=== PATIENT | female | born 1990 | race Caucasian/White ===

== ENCOUNTER 2018-11-13 16:40 | Inpatient (IN) | payer OTHER ==
[2018-11-13] MEDS ORDERED: FAMOTIDINE 20 MG/50 ML IVPB 20 MG/50 ML MG IVPB ONE ×2 (17:06→17:18)
[2018-11-13] MEDS ORDERED: morphine CARPU-JECT 4 MG/1 ML DISP.SYRIN IVPUSH ONE ×3 (17:06→22:36)
--- NOTE | 2018-11-13 17:12 | PDOC ---
History of Present Illness - General Chief Complaint: Chest Pain Stated Complaint: CHEST PAIN Time Seen by Provider: 11/13/18 16:52 History Source: Patient, Spouse Exam Limitations: Language Barrier - History of Present Illness Initial Comments: 11/13/18 17:09 28yo F with no significant PMH presenting to ED with complaints of chest pain radiating to the back since this AM. Pt had pain upon waking up and has progressively worsened per for the last hour. She states the pain is 10/ 10 and radiates to the back. States that she does not feel short of breath but feels the pain upon inspiration and with movements. She denies injury, cough, fevers, chills, abdominal pain, n/v/d, smoking, leg swelling, recent travel, recent surgeries. LMP 10/25/2018. 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 PMD: none PMH: none PSH: Meds: none Allergies: nkda Social: denies Past History - Past Medical History Allergies/Adverse Reactions: Allergies Allergy/AdvReac Type Severity Reaction Status Date / Time No Known Allergies Allergy Verified 11/13/18 16:48 Home Medications: Ambulatory Orders NK [No Known Home Medication] 11/13/18 COPD: No - Psycho Social/Smoking Cessation Hx Smoking History: Never smoked Review of Systems - Review of Systems Able to Perform ROS?: Yes Constitutional: No: Chills, Fever, Weakness HEENTM: No: Symptoms Reported Respiratory: Yes: Shortness of Breath Cardiac (ROS): Yes: Chest Pain. No: Edema, Lightheadedness, Palpitations ABD/GI: No: Constipated, Diarrhea, Nausea, Rectal Bleeding, Vomiting, Abdominal cramping, Tarry Stools : No: Symptoms Reported Musculoskeletal: Yes: Back Pain Integumentary: No: Symptoms Reported Neurological: No: Symptoms reported *Physical Exam - Vital Signs Last Vital Signs Temp Pulse Resp BP Pulse Ox 98.5 F 89 19 136/68 100 11/13/18 22:10 11/13/18 22:10 11/13/18 22:10 11/13/18 22:10 11/13/18 22:10 - Physical Exam General Appearance: Yes: Nourished, Appropriately Dressed, Severe Distress HEENT: positive: EOMI, MARGARETH, Pale Conjunctivae Neck: positive: Trachea midline, Supple Respiratory/Chest: positive: Chest Tender, Lungs Clear, Normal Breath Sounds. negative: Accessory Muscle Use, Crackles, Rales, Rhonchi, Stridor, Wheezing Cardiovascular: positive: Regular Rhythm, Regular Rate, S1, S2. negative: Edema , JVD, Murmur Vascular Pulses: Dorsalis-Pedis (R): 2+, Doralis-Pedis (L): 2+ Gastrointestinal/Abdominal: positive: Normal Bowel Sounds, Soft, Tenderness ( RUQ and epigastric) Musculoskeletal: negative: CVA Tenderness Extremity: positive: Pelvis Stable. negative: Swelling, Calf Tenderness, Erythema Integumentary: positive: Dry, Warm, Pale Neurologic: positive: ethanol operator II-XII NML intact, Fully Oriented, Alert, Normal Mood/ Affect, Normal Response, Motor Strength 06/14 ED Treatment Course - LABORATORY CBC & Chemistry Diagram: 11/13/18 17:25 11/13/18 17:25 - ADDITIONAL ORDERS Additional order review: Laboratory Results 11/13/18 11/13/18 11/13/18 20:10 19:37 17:25 PT with INR INR PTT (Actin FS) Sodium Potassium Chloride Carbon Dioxide Anion Gap BUN Creatinine Est GFR (CKD-EPI)AfAm Est GFR (CKD-EPI)NonAf Random Glucose Calcium Total Bilirubin AST ALT Alkaline Phosphatase Troponin I Total Protein Albumin Lipase Beta HCG, Quant Serum , Qual Negative Stool Occult Blood Negative Blood Type B POSITIVE Antibody Screen Negative 11/13/18 11/13/18 11/13/18 17:25 17:25 17:25 PT with INR Cancelled 13.50 H INR Cancelled 1.14 H PTT (Actin FS) 26.1 Sodium 137 Potassium 3.5 Chloride 104 Carbon Dioxide 26 Anion Gap 8 BUN 18.2 H Creatinine 0.7 Est GFR (CKD-EPI)AfAm 135.70 Est GFR (CKD-EPI)NonAf 117.08 Random Glucose 142 H Calcium 8.7 Total Bilirubin 0.6 AST 67 H ALT 40 Alkaline Phosphatase 115 Troponin I < 0.02 Total Protein 7.4 Albumin 3.8 Lipase 121 Beta HCG, Quant < 1.0 Serum , Qual Stool Occult Blood Blood Type Antibody Screen 11/13/18 17:25 RBC 4.60 MCV 54.2 L MCHC 28.7 L RDW 20.2 H MPV 8.9 Neutrophils % 80.1 Lymphocytes % 14.5 Monocytes % 3.1 L Eosinophils % 1.8 Basophils % 0.5 - RADIOLOGY Radiology Studies Ordered: Category Date Time Status CHEST X-RAY PORTABLE* [RAD] Stat Radiology 11/13/18 17:06 Taken ABDOMEN US -LIMITED [US] Stat Ultrasound 11/13/18 18:06 Completed - Medications Given in the ED: ED Medications Discontinued Medications Generic Name Dose Route Start Last Admin Trade Name Demianq PRN Reason Stop Dose Admin Acetaminophen 1,000 mg 11/13/18 18:20 11/13/18 18:22 Ofirmev Injection - IVPB 11/13/18 18:21 1,000 mg ONCE ONE Administration Famotidine/Sodium Chloride 20 mg in 50 mls @ 100 mls/hr 11/13/18 17:06 17:20 Pepcid 20 Mg Premixed Ivpb - IVPB 11/13/18 17:35 100 mls/hr ONCE ONE Administration Sodium Chloride 1,000 mls @ 1,000 mls/hr 11/13/18 18:08 11/13/18 18:16 Normal Saline - IV 11/13/18 19:07 1,000 mls/hr ASDIR STA Administration Sodium Chloride 1,000 mls @ 1,000 mls/hr 11/13/18 22:00 11/13/18 22:52 Normal Saline - IV 11/13/18 22:59 1,000 mls/hr ASDIR STA Administration Ceftriaxone Sodium 1 gm/ 100 mls @ 200 mls/hr 11/13/18 22:55 11/13/18 23:05 Dextrose IVPB 11/13/18 23:24 200 mls/hr ONCE ONE Administration Ketamine HCl 19 mg 11/13/18 18:07 11/13/18 20:17 Ketalar - IVPUSH 11/13/18 18:08 Not Given ONCE ONE Morphine Sulfate 2 mg 11/13/18 17:06 11/13/18 17:19 Morphine Injection - IVPUSH 11/13/18 17:07 2 mg ONCE ONE Administration Morphine Sulfate 2 mg 11/13/18 20:16 11/13/18 20:25 Morphine Injection - IVPUSH 11/13/18 20:17 2 mg ONCE ONE Administration Morphine Sulfate 4 mg 11/13/18 22:36 11/13/18 22:52 Morphine Injection - IVPUSH 11/13/18 22:37 4 mg ONCE ONE Administration Ondansetron HCl 4 mg 11/13/18 17:31 11/13/18 17:46 Zofran Injection IVPB 11/13/18 17:32 4 mg ONCE ONE Administration Medical Decision Making - Medical Decision Making 11/13/18 17:41 28yo F presenting with chest pain radiating to the back, worsened with movements and inspiration. exam revealed clear breath sounds, normal heart sounds, no friction rub. +epigastric and RUQ tenderness, pale conjunctiva. Vitals wnl. ddx includes but not limited to PUD, cholecystitis, choledocolithiasis, gastritis, GERD, Pericarditis, ptx, pna, acs, pe, pna PERC negative. will order labs including ts, coags, trop, lipase. morphine for pain, pepcid, zofran. bedside u/s demonstrated no ff, no pericardial effusion. dilated CBD, stone seen in GB. 11/13/18 17:57 cbc h/h 7.2/25 with elevated RDW; likely ROLY will obtain guaiac. 11/13/18 23:17 AST 65. all other labs wnl. guaiac negative. does not require transfusion at this time. pt received total of 8mg morphine, ofirmev and fluids. still having pain. RUQ sono: cbc 0.8cm, biliary sludge, equivocal GBW thickness, no pericholecystic fluid, +sonographic rendon's. US read as cholelithiasis, possible acute tom. will order 1mg dilaudid. Called Dr. shah, will see pt tomorrow. will order rocephin 1g and Flagyl. 11/13/18 23:48 accepted by hospitalist. Discharge - Discharge Information Problems reviewed: Yes Clinical Impression/Diagnosis: Cholecystitis Cholelithiasis Qualifiers: Cholelithiasis location: gallbladder Cholecystitis presence: with cholecystitis Cholecystitis acuity: acute Biliary obstruction: without biliary obstruction Qualified Code(s): K80.00 - Calculus of gallbladder with acute cholecystitis without obstruction Abdominal pain Qualifiers: Abdominal location: epigastric Qualified Code(s): R10.13 - Epigastric pain Anemia Qualifiers: Anemia type: unspecified type Qualified Code(s): D64.9 - Anemia, unspecified Condition: Stable - Admission Yes - Follow up/Referral - Patient Discharge Instructions - Post Discharge Activity
[2018-11-13] MEDS ORDERED: morphine SULFATE 4 MG/ML VIAL ONE ×2 (17:17→22:43)
--- NOTE | 2018-11-13 17:19 | PDOC ---
Attending Attestation - Resident Resident Name: Marielena Kruger - ED Attending Attestation I have performed the following: I have examined & evaluated the patient, The case was reviewed & discussed with the resident, I agree w/resident's findings & plan - HPI HPI: 11/13/18 19:18 28yo F with h/o Anemia presenting to ED with complaints of chest pain and epigastric AP radiating to the back since this AM. Pt had pain upon waking up and has progressively worsened per for the last hour. She states the pain is 10/10 and radiates to the back. States that she does not feel short of breath but feels the pain upon inspiration and with movements. She denies injury, cough, fevers, chills, vomiting or diarrhea, smoking, leg swelling, rash recent travel, recent surgeries. no history of similar sx. LMP 10/25/2018 - Physicial Exam PE: 11/13/18 19:21 Agree with the resident's HPI and PE as documented in the electronic medical record. mild distress 2/2 pain, EOMI, PERRL, MMM, pale conjunctiva, anicteric; neck supple. lungs clear, tachycardic, abdomen soft +diffusely tender, +RUQ and epigastric TTP, +vol guarding, no rebound. no CVAT. Back nontender. ROSSI x4, no focal neuro deficits. No peripheral edema. pale color for ethnicity, WWP. no calf tenderness. 11/13/18 22:27 11/14/18 17:17 - Medical Decision Making 11/13/18 17:18 See HPI for details. Prior notes reviewed, including admissions, discharges and consultations. Vital signs reviewed, wnl. Vital Signs Temp Pulse Resp BP Pulse Ox 99.6 F 68 19 103/60 98 11/13/18 16:44 11/13/18 16:44 11/13/18 16:44 11/13/18 16:44 11/13/18 16:44 DDx abdominal pain: Renal colic, biliary colic, metabolic/electrolyte derangements. GERD, PUD, esophageal spasm, pancreatitis, hepatitis, constipation , colitis, gastroenteritis, cholecystitis, UTI, pyelonephritis, ileus, SBO, medication side effect, hernia, appendicitis, diverticulitis, mesenteric ischemia. msk strain, mesenteric adenitis, psoas abscess. POCUS biliary exam: Indication: abdominal pain Views: gallbladder long and s hort axis, CBD Findings: +small gallstones with bordelrine GB wall thickening >3mm, no pericholecystic fluid, normal CBD 4.5mm for age. Impression: dilated CBD with gallstones, possible choledocholithiasis. no definitive finding to suggest acute tom. laboratory results and imaging reviewed, basic labs and lytes wnl, +anemia noted (unclear prior, but no bleeding now) no indicaiton for transfusion. as no bleeding LFTs/lipase_normal CXR_no cute chest pathology Cardiac panel_neg EKG normal sinus rhythm at 68 bpm, no interval abnormalities, narrow QRS, ST and T wave segments and morphology normal. stool_guaiac neg for blood ED course -interventions: analgesia, IVF RUQ sono with +gallstones, no pericholecystic fluid, dilated CBD kalpesh with acute choledocholithiasis will need GI more for sx biliary stones and choledocholithiasis, needs MRCP GI cs with Dr. Jeong, agree with plan admit to medical service, hospitalist team for further management. 11/14/18 17:10 11/14/18 17:13 11/14/18 17:17 Heart Score/ECG Review #1 ECG reviewed & interpreted by me at: 17:00 General ECG Interpretation: Sinus Rhythm, Normal Rate, Normal Intervals Compared to previous ECG there are: Previous ECG unavail 11/13/18 17:20 EKG normal sinus rhythm at 68 bpm, no interval abnormalities, narrow QRS, ST and T wave segments and morphology normal. no prior.
[2018-11-13] MEDS ORDERED: ONDANSETRON 4 MG/2 ML VIAL IVPB ONE (17:31)
[2018-11-13 17:41] LABS: BASO % 0.5 % (0-2.0); EOS % 1.8 % (0-4.5); HEMOGLOBIN 7.2 GM/dL (10.7-15.3); LYMPH % 14.5 % (8-40); MCHC 28.7 g/dl (32.0-36.0); MEAN CELL VOLUME 54.2 fl (80-96); MEAN PLT VOLUME 8.9 fl (7.5-11.1); MONO % 3.1 % (3.8-10.2); NEUT % 80.1 % (42.8-82.8); PLATELET COUNT 365 K/MM3 (134-434); RDW 20.2 % (11.6-15.6); WHITE BLOOD COUNT 12.6 K/mm3 (4.0-10.0)
[2018-11-13 17:42] LABS: MCH 15.6 pg (25.7-33.7)
[2018-11-13] MEDS ORDERED: ONDANSETRON 4 MG/2 ML VIAL ONE (17:45)
[2018-11-13 18:03] LABS: INR 1.14 (0.83-1.09); PROTHROMBIN TIME (PATIENT) 13.5 SEC (9.7-13.0)
[2018-11-13 18:06] LABS: ACTIVATED PTT 26.1 SECONDS (25.2-36.5)
[2018-11-13] MEDS ORDERED: KETAMINE HCL 200 MG/20 ML VIAL IVPUSH ONE (18:07)
[2018-11-13] MEDS ORDERED: SODIUM CHLORIDE 1,000 ML IV STA ×2 (18:08→22:00)
[2018-11-13 18:11] LABS: ANISOCYTOSIS 3+; MACROCYTOSIS 0; PLATELET ESTIMATE NORMAL
[2018-11-13 18:16] LABS: ALBUMIN 3.8 g/dl (3.4-5.0); ALK PHOS 115 U/L (45-117); ANION GAP 8 MMOL/L (8-16); BILIRUBIN,TOTAL 0.6 mg/dL (0.2-1); BLOOD UREA NITROGEN 18.2 mg/dL (7-18); CALCIUM 8.7 mg/dL (8.5-10.1); CHLORIDE 104 mmol/L (98-107); CO2 26 mmol/L (21-32); CREATININE 0.7 mg/dL (0.55-1.3); GLUCOSE,RANDOM 142 mg/dL (74-106); LIPASE 121 U/L (73-393); POTASSIUM 3.5 mmol/L (3.5-5.1); SGOT/AST 67 U/L (15-37); SGPT/ALT 40 U/L (13-61); SODIUM 137 mmol/L (136-145); TOT PROT 7.4 g/dl (6.4-8.2)
[2018-11-13] MEDS ORDERED: ACETAMINOPHEN 1000 MG/100 ML VIAL (NON FORMULARY) IVPB ONE (18:20)
[2018-11-13] MEDS ORDERED: ACETAMINOPHEN INJECTION 100 ML IVPB ONE (18:20)
[2018-11-13] MEDS ORDERED: MORPHINE SULFATE 2 MG/ML VIAL ONE (20:24)
[2018-11-13] MEDS ORDERED: CEFTRIAXONE 1 GM in DEXTROSE 5%-WATER - 100 ML IVPB ONE (22:55)
[2018-11-13] MEDS ORDERED: HYDROmorphone HCL CARPU-JECT 2 MG/1 ML DISP.SYRIN IVPUSH ONE (22:56)
[2018-11-13] MEDS ORDERED: HYDROmorphone HCl 2 MG/ML VIAL ONE (23:43)
[2018-11-14] MEDS: SODIUM CHLORIDE 1,000 ML IV SCH ×2 (01:06→03:24)
--- NOTE | 2018-11-14 01:06 | HP ---
CHIEF COMPLAINT: chest pressure, epigastric pain PCP: none HISTORY OF PRESENT ILLNESS: Ms. Gandhi is a 28 y/o female with PMH of iron-deficiency anemia (not currently on treatment) who presents with intermittent chest pressure and epigastric pain. Pt reports waking up at 4am with sudden onset of symptoms which became intermittent. Symptoms got severe during the day which prompted pt to call EMS. She reports epigastric pain that is 9/10 with radiation to the back. She is unable to characterize pain. She also has substernal chest pressure that does not radiate. She denies nausea, vomiting, diarrhea, shortness of breath, cough, wheezing. She denied oral control, ring, and IUD. Last LMP was 10/25/18 and last couple periods have been shorter, lasting 2 days instead of 4 days. They have not been heavier than usual. ER course was notable for: (1) transvaginal U/S showed IUD low in position and endometrium abnormally thickened at 2.3cm concerning for retained products of conception (2) EKG negative for acute ST changes, trop negative (3) WBC 12.6 (4) low iron (5) transfused 1 unit PRBCs Recent Travel: none PAST MEDICAL HISTORY: iron-deficiency anemia PAST SURGICAL HISTORY: 3 c-sections Social History: Smoking: denies Alcohol: denies Drugs: denies Family History: Pt denies family hx of cholecystitis. Hx of heart problems on mother's side, not specific. Allergies No Known Allergies Allergy (Verified 11/13/18 16:48) HOME MEDICATIONS: Home Medications Medication Instructions Recorded NK [No Known Home Medication] 11/13/18 REVIEW OF SYSTEMS CONSTITUTIONAL: Absent: fever, chills HEENT: Absent: visual changes CARDIOVASCULAR: Present: chest pain Absent: syncope, palpitations RESPIRATORY: Absent: cough, shortness of breath, wheezing GASTROINTESTINAL: Present: abdominal pain Absent: abdominal distension, nausea, vomiting, diarrhea, constipation, melena, hematochezia GENITOURINARY: Absent: dysuria MUSCULOSKELETAL: Present: back pain Absent: myalgia, arthralgia, joint swelling, neck pain SKIN: Absent: rash, itching, pallor HEMATOLOGIC/IMMUNOLOGIC: Absent: easy bleeding, easy bruising, lymphadenopathy, frequent infections ENDOCRINE: Absent: unexplained weight gain, unexplained weight loss, heat intolerance, cold intolerance NEUROLOGIC: Absent: headache, focal weakness or paresthesias, dizziness, unsteady gait, seizure, mental status changes, bladder or bowel incontinence PSYCHIATRIC: Absent: anxiety, depression, suicidal or homicidal ideation, hallucinations. PHYSICAL EXAMINATION Vital Signs - 24 hr 11/13/18 11/13/18 11/13/18 16:44 17:59 22:10 Temperature 99.6 F 7.8 F L 98.5 F Pulse Rate 68 Pulse Rate [ 69 89 Left Apical] Respiratory 19 28 H 19 Rate Blood Pressure 103/60 Blood Pressure 130/72 136/68 [Right] O2 Sat by Pulse 98 100 100 Oximetry (%) GENERAL: Drowsy, but arousable, oriented x3, in mild distress HEAD: Normal with no signs of trauma. EYES: Pupils equal, round and reactive to light, extraocular movements intact, sclera anicteric, conjunctival pallor. No lid lag. EARS, NOSE, THROAT: Ears normal, nares patent, moist mucous membranes. NECK: Normal range of motion, supple without lymphadenopathy, JVD, or masses. LUNGS: Breath sounds equal, clear to auscultation bilaterally. No wheezes, and no crackles. No accessory muscle use. HEART: Regular rate and rhythm, normal S1 and S2 without murmur, rub or gallop. ABDOMEN: Soft, tender to palpation in epigastric, RUQ, and LUQ, not distended, normoactive bowel sounds MUSCULOSKELETAL: Normal range of motion at all joints. No bony deformities or tenderness. CVA tenderness bilaterally, worse on right UPPER EXTREMITIES: 2+ pulses, warm, well-perfused. No cyanosis. No clubbing. No peripheral edema. LOWER EXTREMITIES: 2+ pulses, warm, well-perfused. No calf tenderness. No peripheral edema. NEUROLOGICAL: Cranial nerves II-XII intact. Normal speech. PSYCHIATRIC: Cooperative. Good eye contact. Appropriate mood and affect. SKIN: Warm, dry, normal turgor, no rashes or lesions noted, normal capillary refill. Pale. RECTAL: soft brown stool, no lesions or masses noted Laboratory Results - last 24 hr 11/13/18 11/13/18 11/13/18 17:25 17:25 17:25 WBC 12.6 H RBC 4.60 Hgb 7.2 L Hct 25.0 L MCV 54.2 L MCH 15.6 L MCHC 28.7 L RDW 20.2 H Plt Count 365 MPV 8.9 Absolute Neuts (auto) 10.1 H Neutrophils % 80.1 Lymphocytes % 14.5 Monocytes % 3.1 L Eosinophils % 1.8 Basophils % 0.5 Nucleated RBC % 0 Hypochromia 2+ Platelet Estimate Normal Anisocytosis 3+ Microcytosis 3+ Macrocytosis 0 Stomatocytes 1+ PT with INR 13.50 H INR 1.14 H PTT (Actin FS) 26.1 Sodium 137 Potassium 3.5 Chloride 104 Carbon Dioxide 26 Anion Gap 8 BUN 18.2 H Creatinine 0.7 Est GFR (CKD-EPI)AfAm 135.70 Est GFR (CKD-EPI)NonAf 117.08 Random Glucose 142 H Calcium 8.7 Total Bilirubin 0.6 AST 67 H ALT 40 Alkaline Phosphatase 115 Troponin I < 0.02 Total Protein 7.4 Albumin 3.8 Lipase 121 Beta HCG, Quant < 1.0 Serum , Qual Stool Occult Blood Blood Type Antibody Screen 11/13/18 11/13/18 11/13/18 17:25 17:25 19:37 WBC RBC Hgb Hct MCV MCH MCHC RDW Plt Count MPV Absolute Neuts (auto) Neutrophils % Lymphocytes % Monocytes % Eosinophils % Basophils % Nucleated RBC % Hypochromia Platelet Estimate Anisocytosis Microcytosis Macrocytosis Stomatocytes PT with INR Cancelled INR Cancelled PTT (Actin FS) Sodium Potassium Chloride Carbon Dioxide Anion Gap BUN Creatinine Est GFR (CKD-EPI)AfAm Est GFR (CKD-EPI)NonAf Random Glucose Calcium Total Bilirubin AST ALT Alkaline Phosphatase Troponin I Total Protein Albumin Lipase Beta HCG, Quant Serum , Qual Negative Stool Occult Blood Blood Type B POSITIVE Antibody Screen Negative 11/13/18 20:10 WBC RBC Hgb Hct MCV MCH MCHC RDW Plt Count MPV Absolute Neuts (auto) Neutrophils % Lymphocytes % Monocytes % Eosinophils % Basophils % Nucleated RBC % Hypochromia Platelet Estimate Anisocytosis Microcytosis Macrocytosis Stomatocytes PT with INR INR PTT (Actin FS) Sodium Potassium Chloride Carbon Dioxide Anion Gap BUN Creatinine Est GFR (CKD-EPI)AfAm Est GFR (CKD-EPI)NonAf Random Glucose Calcium Total Bilirubin AST ALT Alkaline Phosphatase Troponin I Total Protein Albumin Lipase Beta HCG, Quant Serum , Qual Stool Occult Blood Negative Blood Type Antibody Screen ASSESSMENT/PLAN: Ms. Gandhi is a 28 y/o female with PMH of iron-deficiency anemia and pre- eclampsia who presents with chest pressure and epigastric pain with radiation to the back. #abdominal pain, chest pressure Pt has BP equal in both arms. CXR was normal. Transvaginal U/S showed showed IUD low in position and endometrium abnormally thickened at 2.3cm concerning for retained products of conception. 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 -inventory analyst consult #iron-deficiency microcytic anemia Pt has hx of iron-deficiency in the past but has not been on supplementation recently. Hb 7.2-->7.5 s/p 1 unit PRBCs. Iron low and TIBC high. FOBT negative. -1 additional unit PRBCs -PO ferrous sulfate -consider IV Venofer FEN NS 100mL/hr monitor NPO DVT Ppx SCDs dispo med/surg Visit type - Emergency Visit Emergency Visit: Yes ED Registration Date: 11/13/18 Care time: The patient presented to the Emergency Department on the above date and was hospitalized for further evaluation of their emergent condition. - New Patient This patient is new to me today: Yes Date on this admission: 11/14/18 - Critical Care Critical Care patient: No ATTENDING PHYSICIAN STATEMENT I saw and evaluated the patient. I reviewed the resident's note and discussed the case with the resident. I agree with the resident's findings and plan as documented. SUBJECTIVE: OBJECTIVE: ASSESSMENT AND PLAN:
[2018-11-14] MEDS ORDERED: PROCHLORPERAZINE INJECTION 10 MG/2 ML VIAL IVPB PRN ×2 (01:30→14:18)
--- NOTE | 2018-11-14 01:41 | PN ---
Teaching Attending Note Name of Resident: Aisha Vasquez ATTENDING PHYSICIAN STATEMENT I saw and evaluated the patient. I reviewed the resident's note and discussed the case with the resident. I agree with the resident's findings and plan as documented. SUBJECTIVE: 28yo woman c/o chest and back pain since 11/13 morning, started spontaneously, associated with dyspnea, worsened with exertion. She denied any overt bleeding aside from menses which she said is not heavy. Denied excessive pelvic cramps. Patient also experiencing ruq abdominal pain intermittent, says it was precipitated by drinking coffee. OBJECTIVE: Last Vital Signs Temp Pulse Resp BP Pulse Ox 98.5 F 89 19 136/68 100 11/13/18 22:10 11/13/18 22:10 11/13/18 22:10 11/13/18 22:10 11/13/18 22:10 gen- pale, lethargic heent -pale subconjunctiva chest clear cv-s1+s2+rrr abd - soft, ruq tenderness, +rendon sign ext - no pedal edema Abnormal Lab Results 11/13/18 11/13/18 11/13/18 17:25 17:25 17:25 WBC 12.6 H Hgb 7.2 L Hct 25.0 L MCV 54.2 L MCH 15.6 L MCHC 28.7 L RDW 20.2 H Absolute Neuts (auto) 10.1 H Monocytes % 3.1 L PT with INR 13.50 H INR 1.14 H BUN 18.2 H Random Glucose 142 H AST 67 H Crossmatch 11/13/18 17:25 WBC Hgb Hct MCV MCH MCHC RDW Absolute Neuts (auto) Monocytes % PT with INR INR BUN Random Glucose AST Crossmatch See Detail Imaging studies reviewed - liver u/s showed possible cholecystitis and cbd dilatation -0.8 cm ASSESSMENT AND PLAN: Severe symptomatic microcytic anemia- likely secondary to blood loss. Suspect heavy menstruation. SHould r/o fibroids or other structural uterine abnormality. Differential diagnosis includes thalassemia. Will transfuse one prbc due to patient's symptoms. Leukocytosis+, no infections suspected. -admit to med/surg -red blood smear -fibrinogen -iron studies -ferritin level -iv fluid hydration -type and screen -transfuse 1 prbc -pelvic u/s to evaluate for fibroids -ferrous sulfate #Cholecystitis- should also r/o cholangitis -npo -surgery consult -mrcp -no antibiotics at this time #Leukocytosis -monitor wbc count dvt ppx- scds
[2018-11-14 01:43] LABS: BASO % 0.4 % (0-2.0); MEAN PLT VOLUME 8.9 fl (7.5-11.1)
[2018-11-14 01:54] LABS: IRON SERUM 11 ug/dL (50-175); TOTAL IRON BINDING CAPACITY 463 ug/dL (250-450)
[2018-11-14 02:32] LABS: HEMATOCRIT 25.3 % (32.4-45.2); HEMOGLOBIN 7.5 GM/dL (10.7-15.3); LYMPH % 6.8 % (8-40); MCHC 29.5 g/dl (32.0-36.0); MEAN CELL VOLUME 54.3 fl (80-96); MONO % 3.2 % (3.8-10.2); NEUT % 89.6 % (42.8-82.8); PLATELET COUNT 322 K/MM3 (134-434); RBC 4.66 M/mm3 (3.60-5.2); RDW 20.4 % (11.6-15.6); WHITE BLOOD COUNT 8.9 K/mm3 (4.0-10.0)
[2018-11-14] MEDS: MORPHINE SULFATE 2 MG/ML VIAL IVPUSH PRN ×2 (04:28→08:25)
[2018-11-14 07:50] LABS: BASO % 0.3 % (0-2.0); HEMATOCRIT 28.8 % (32.4-45.2); HEMOGLOBIN 8.7 GM/dL (10.7-15.3); LYMPH % 7.5 % (8-40); MCH 17.5 pg (25.7-33.7); MCHC 30.1 g/dl (32.0-36.0); MEAN CELL VOLUME 58.2 fl (80-96); MEAN PLT VOLUME 8.7 fl (7.5-11.1); MONO % 5.6 % (3.8-10.2); NEUT % 86.6 % (42.8-82.8); PLATELET COUNT 338 K/MM3 (134-434); RBC 4.94 M/mm3 (3.60-5.2); RDW 21.5 % (11.6-15.6); WHITE BLOOD COUNT 10.1 K/mm3 (4.0-10.0)
[2018-11-14] MEDS ORDERED: FERROUS SO4 325 MG TABLET (FP) PO SCH (08:00)
[2018-11-14 08:10] LABS: ALBUMIN 3.9 g/dl (3.4-5.0); BILIRUBIN,TOTAL 2.8 mg/dL (0.2-1); BLOOD UREA NITROGEN 6.2 mg/dL (7-18); CALCIUM 8.4 mg/dL (8.5-10.1); CREATININE 0.5 mg/dL (0.55-1.3); MAGNESIUM 1.9 mg/dL (1.8-2.4); PHOSPHOROUS 2.8 mg/dL (2.5-4.9); POTASSIUM 3.9 mmol/L (3.5-5.1); TOT PROT 7.7 g/dl (6.4-8.2)
--- NOTE | 2018-11-14 08:53 | CON.GI ---
Consult Consult Specialty:: GI Referred by:: Hospitalist service Reason for Consultation:: Cholelithiasis - History of Present Illness Chief Complaint: 28 y.o. F admitted with pain in back and chest History of Present Illness: Pt interviewed with bilingual steward/stewardess club car. 28 y.o. F who awoke with pain in her back, which she initially attributed to her position in bed. Later in the morning the pain became more severe and migrated to the epigastrium and her chest and she also felt short of breath. She denies any nausea or vomiting. She had a similar episode about 3 years ago, went to an ER and no diagnosis was made that she can recall. In the ER she was noted to be markedly anemic with microcytic indices (MCV 54, gb 7.2). She was told of anemia 3 years ago when she gave in [place]. None of her children are anemic and there is no family history of anemia. She denies heavy menses. She also denies weight loss, diarrhea, constipation, change in bowel habits. She says she does not take NSAIDs at home. A sonogram of the abdomen shows a mildly distended GB with what appears (to me) to be 2 or 3 small stones. The CBD was measured as slightly dilated. Liver chemistries were slightly elevated yesterday but have jumped markedly today: Hepatic Panel Total Bilirubin 2.8 mg/dL (0.2-1) H D 11/14/18 07:00 AST 691 U/L (15-37) H 11/14/18 07:00 ALT 630 U/L (13-61) H 11/14/18 07:00 Alkaline Phosphatase 189 U/L (45-117) H 11/14/18 07:00 Albumin 3.9 g/dl (3.4-5.0) 11/14/18 07:00 - History Source History Provided By: Patient, Family Member Limitations to Obtaining History: No Limitations - Past Medical History ...LMP: 10/27/18 ...: No Heme/Onc: Yes: Anemia - Alcohol/Substance Use Hx Alcohol Use: No - Smoking History Smoking history: Never smoked - Social History Usual Living Arrangement: With Spouse Home Medications - Allergies Allergies/Adverse Reactions: Allergies Allergy/AdvReac Type Severity Reaction Status Date / Time No Known Allergies Allergy Verified 11/13/18 16:48 - Home Medications Home Medications: Ambulatory Orders NK [No Known Home Medication] 11/13/18 Physical Exam-GI Vital Signs: Vital Signs Temperature 98.9 F 11/14/18 04:52 Pulse Rate 61 11/14/18 04:52 Respiratory Rate 18 11/14/18 06:29 Blood Pressure 166/86 11/14/18 04:52 O2 Sat by Pulse Oximetry (%) 100 11/14/18 06:29 Constitutional: Yes: Moderate Distress Eyes: Yes: Other (Slightly icteric.) Neck: Yes: Supple Cardiovascular: Yes: Regular Rate and Rhythm Respiratory: Yes: CTA Bilaterally ...Auscultate: Yes: Hypoactive Bowel Sounds ...Palpate: Yes: Soft, Tenderness (in RUQ and epigastrium) Edema: No Neurological: Yes: Alert Labs: CBC, BMP 11/14/18 07:00 11/14/18 07:00 INR, PTT INR 1.14 (0.83-1.09) H 11/13/18 17:25 Imaging - Results Ultrasound: Report Reviewed, Image Reviewed Problem List - Problems (1) Cholelithiasis Code(s): K80.20 - CALCULUS OF GALLBLADDER W/O CHOLECYSTITIS W/O OBSTRUCTION Qualifiers: Cholelithiasis location: gallbladder Cholecystitis presence: with cholecystitis Cholecystitis acuity: acute Biliary obstruction: without biliary obstruction Qualified Code(s): K80.00 - Calculus of gallbladder with acute cholecystitis without obstruction Assessment/Plan Pt has symptomatic gallstone disease and has a good chance of having a common bile duct stone. She is on antibiotics and has no sign of cholangitis at present. Will discuss management with hospitalist team.
--- NOTE | 2018-11-14 09:02 | PN ---
Physical Exam: SUBJECTIVE: Patient seen and examined. She is complaining of upper abdominal pain. OBJECTIVE: Vital Signs Period Temp Pulse Resp BP Sys/Raya Pulse Ox Last 24 Hr 7.8 F-99.6 F 61-89 18-28 103-167/60-86 98-100 GENERAL: The patient is awake, alert, and fully oriented, in moderate distress secondary to pain. EYES: Sclerae icteric, conjunctiva clear. LUNGS: Breath sounds equal, clear to auscultation bilaterally, no wheezes, no crackles, no accessory muscle use. HEART: Regular rate and rhythm, S1, S2 without murmur, rub or gallop. ABDOMEN: Obese, soft, nondistended, (+) RUQ/epigastric tenderness, normoactive bowel sounds, no hepatosplenomegaly, no masses. EXTREMITIES: 2+ pulses, warm, well-perfused, no edema. Laboratory Results - last 24 hr 11/13/18 11/13/18 11/13/18 17:25 17:25 17:25 WBC 12.6 H RBC 4.60 Hgb 7.2 L Hct 25.0 L MCV 54.2 L MCH 15.6 L MCHC 28.7 L RDW 20.2 H Plt Count 365 MPV 8.9 Absolute Neuts (auto) 10.1 H Neutrophils % 80.1 Lymphocytes % 14.5 Monocytes % 3.1 L Eosinophils % 1.8 Basophils % 0.5 Nucleated RBC % 0 Hypochromia 2+ Platelet Estimate Normal Anisocytosis 3+ Microcytosis 3+ Macrocytosis 0 Stomatocytes 1+ PT with INR 13.50 H INR 1.14 H PTT (Actin FS) 26.1 Sodium 137 Potassium 3.5 Chloride 104 Carbon Dioxide 26 Anion Gap 8 BUN 18.2 H Creatinine 0.7 Est GFR (CKD-EPI)AfAm 135.70 Est GFR (CKD-EPI)NonAf 117.08 Random Glucose 142 H Calcium 8.7 Phosphorus Magnesium Iron 11 L TIBC 463 H Iron Saturation 2 L Unsaturated IBC 452 H Ferritin 4.0 L Total Bilirubin 0.6 AST 67 H ALT 40 Alkaline Phosphatase 115 Troponin I < 0.02 Total Protein 7.4 Albumin 3.8 Lipase 121 Vitamin B12 345 Serum Folate 19 H Beta HCG, Quant < 1.0 Serum , Qual Stool Occult Blood Blood Type Antibody Screen Crossmatch 1011/13/18 11/13/18 17:25 17:25 19:37 WBC RBC Hgb Hct MCV MCH MCHC RDW Plt Count MPV Absolute Neuts (auto) Neutrophils % Lymphocytes % Monocytes % Eosinophils % Basophils % Nucleated RBC % Hypochromia Platelet Estimate Anisocytosis Microcytosis Macrocytosis Stomatocytes PT with INR Cancelled INR Cancelled PTT (Actin FS) Sodium Potassium Chloride Carbon Dioxide Anion Gap BUN Creatinine Est GFR (CKD-EPI)AfAm Est GFR (CKD-EPI)NonAf Random Glucose Calcium Phosphorus Magnesium Iron TIBC Iron Saturation Unsaturated IBC Ferritin Total Bilirubin AST ALT Alkaline Phosphatase Troponin I Total Protein Albumin Lipase Vitamin B12 Serum Folate Beta HCG, Quant Serum , Qual Negative Stool Occult Blood Blood Type B POSITIVE Antibody Screen Negative Crossmatch See Detail 11/13/18 11/14/18 11/14/18 20:10 01:30 01:30 WBC 8.9 RBC 4.66 Hgb 7.5 L Hct 25.3 L MCV 54.3 L MCH 16.0 L MCHC 29.5 L RDW 20.4 H Plt Count 322 MPV 8.9 Absolute Neuts (auto) 7.9 Neutrophils % 89.6 H Lymphocytes % 6.8 L D Monocytes % 3.2 L Eosinophils % 0.0 D Basophils % 0.4 Nucleated RBC % 0 Hypochromia Platelet Estimate Anisocytosis Microcytosis Macrocytosis Stomatocytes PT with INR INR PTT (Actin FS) Sodium Potassium Chloride Carbon Dioxide Anion Gap BUN Creatinine Est GFR (CKD-EPI)AfAm Est GFR (CKD-EPI)NonAf Random Glucose Calcium Phosphorus Magnesium Iron TIBC Iron Saturation Unsaturated IBC Ferritin Total Bilirubin AST ALT Alkaline Phosphatase Troponin I Total Protein Albumin Lipase Vitamin B12 Serum Folate Beta HCG, Quant Serum , Qual Stool Occult Blood Negative Blood Type B POSITIVE Antibody Screen Crossmatch 11/14/18 11/14/18 11/14/18 01:30 07:00 07:00 WBC 10.1 H RBC 4.94 Hgb 8.7 L Hct 28.8 L MCV 58.2 L D MCH 17.5 L MCHC 30.1 L RDW 21.5 H Plt Count 338 MPV 8.7 Absolute Neuts (auto) 8.7 H Neutrophils % 86.6 H Lymphocytes % 7.5 L Monocytes % 5.6 Eosinophils % 0.0 Basophils % 0.3 Nucleated RBC % 0 Hypochromia Platelet Estimate Anisocytosis Microcytosis Macrocytosis Stomatocytes PT with INR INR PTT (Actin FS) Sodium 134 L Potassium 3.9 Chloride 102 Carbon Dioxide 24 Anion Gap 8 BUN 6.2 L Creatinine 0.5 L Est GFR (CKD-EPI)AfAm 151.59 Est GFR (CKD-EPI)NonAf 130.79 Random Glucose 135 H Calcium 8.4 L Phosphorus 2.8 Magnesium 1.9 Iron TIBC Iron Saturation Unsaturated IBC Ferritin Total Bilirubin 2.8 H D AST 691 H ALT 630 H Alkaline Phosphatase 189 H Troponin I < 0.02 Total Protein 7.7 Albumin 3.9 Lipase Vitamin B12 Serum Folate Beta HCG, Quant Serum , Qual Stool Occult Blood Blood Type Antibody Screen Crossmatch Active Medications Generic Name Dose Route Start Last Admin Trade Name Freq PRN Reason Stop Dose Admin Ferrous Sulfate 325 mg 11/14/18 08:00 11/14/18 08:31 Feosol - PO 325 mg BIDWM HEMANTH Administration Sodium Chloride 1,000 mls @ 100 mls/hr 11/14/18 01:00 11/14/18 03:24 Normal Saline - IV 100 mls/hr ASDIR HEMANTH Administration Morphine Sulfate 2 mg 11/14/18 00:52 11/14/18 08:25 Morphine Sulfate IVPUSH 2 mg Q4H PRN Administration PAIN LEVEL 6-10 Prochlorperazine Edisylate 10 mg 11/14/18 01:30 Compazine Injection - IVPB Q6H PRN NAUSEA AND/OR VOMITING ASSESSMENT/PLAN: This is a 28 year old woman with a history of iron-deficiency anemia, pre- eclampsia who presented to the ED with chest and epigastric pain radiating to her back. 1. Cholelithiasis/choledocholithiasis with possible acute cholecystitis, possible acute cholangitis - NPO - IV fluid - Pain control with morphine - Ceftriaxone, Flagyl - GI, surgery evaluations for ERCP, cholecystectomy 2. Iron-deficiency anemia - Transfused 1 unit PRBCs - No evidence of bleeding - Monitor hemoglobin - Continue ferrous sulfate 3. Obesity with BMI 31.1 Visit type - Emergency Visit Emergency Visit: Yes ED Registration Date: 11/13/18 Care time: The patient presented to the Emergency Department on the above date and was hospitalized for further evaluation of their emergent condition. - New Patient This patient is new to me today: Yes Date on this admission: 11/14/18 - Critical Care Critical Care patient: No - Discharge Referral Referred to [facility] No
--- NOTE | 2018-11-14 09:28 | PN ---
Progress Note (short form) - Note Progress Note: Case discussed with Dr Babcock. In light of new jaundice, rising LFTs, continued pain, dilated CBD, the likelihood of a CBD stone is extremely high. MRCP no longer needed, will proceed to ERCP. Risks, benefits, alternatives to ERCP with sphincterotomy, possible stent explained to patient and her with bumper straightener, including the risk of pancreatitis, which I gave as roughly 20% for mild, 5% for moderate, and 1% for severe (severe meaning hospitalization for more than a few days secondary to the procedure). Consent obtained. Will be done today. Problem List - Problems (1) Cholelithiasis Code(s): K80.20 - CALCULUS OF GALLBLADDER W/O CHOLECYSTITIS W/O OBSTRUCTION Qualifiers: Cholelithiasis location: gallbladder Cholecystitis presence: with cholecystitis Cholecystitis acuity: acute Biliary obstruction: without biliary obstruction Qualified Code(s): K80.00 - Calculus of gallbladder with acute cholecystitis without obstruction
--- NOTE | 2018-11-14 09:56 | EKG ---
Test Reason : Blood Pressure : / mmHG Vent. Rate : 068 BPM Atrial Rate : 068 BPM P-R Int : 166 ms QRS Dur : 092 ms QT Int : 440 ms P-R-T Axes : 049 033 036 degrees QTc Int : 467 ms NORMAL SINUS RHYTHM PREMATURE ATRIAL COMPLEXES NO PREVIOUS ECGS AVAILABLE Confirmed by SINGH CARABALLO MD ([id number]) on 11/14/2018 9:56:07 AM Referred By: Confirmed By:SINGH CARABALLO MD
[2018-11-14] MEDS ORDERED: CEFTRIAXONE 1 GM in DEXTROSE 5%-WATER - 50 ML IVPB SCH (10:00)
[2018-11-14] MEDS ORDERED: INDOMETHACIN 50 MG RECTAL SUPPOSITORY PR ONE ×2 (10:30→12:51)
--- NOTE | 2018-11-14 10:32 | PN ---
Progress Note (short form) - Note Progress Note: analysis reporting developer consult done, report to follow , no acute analysis reporting developer issue , anemia work up follow up in analysis reporting developer clinic at [facility] for follow up pap and iud evaluation after discharge
[2018-11-14] MEDS ORDERED: cefTRIAXone SODIUM 1 GM VIAL ONE (11:09)
[2018-11-14] MEDS ORDERED: DEXTROSE 5%-WATER - 50 ML IVPB ONE (11:09)
[2018-11-14] MEDS ORDERED: INDOMETHACIN 50 MG CAPSULE PO ONE (12:51)
[2018-11-14 13:10] LABS: BASO % 0.3 % (0-2.0); HEMATOCRIT 31.8 % (32.4-45.2); HEMOGLOBIN 9.4 GM/dL (10.7-15.3); LYMPH % 6.4 % (8-40); MCHC 29.6 g/dl (32.0-36.0); MEAN CELL VOLUME 58.6 fl (80-96); MEAN PLT VOLUME 9.2 fl (7.5-11.1); NEUT % 87.3 % (42.8-82.8); PLATELET COUNT 381 K/MM3 (134-434); RBC 5.44 M/mm3 (3.60-5.2); RDW 22.3 % (11.6-15.6); WHITE BLOOD COUNT 14.7 K/mm3 (4.0-10.0)
[2018-11-14 13:25] LABS: MCH 17.3 pg (25.7-33.7)
--- NOTE | 2018-11-14 14:01 | PN ---
Progress Note (short form) - Note Progress Note: ERCP with sphincterotomy performed today. 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 On cannulation the common bile duct was now dilated to almost 12 mm. No bile was emanating from major papilla. After sphincterotomy, several hundred ccs of purulent bile drained rapidly into the duodenum. No stones were seen on cholangiogram. To continue vigorous hydration with lactated Ringer's to help prevent post-ERCP pancreatitis. Problem List - Problems (1) Cholelithiasis Code(s): K80.20 - CALCULUS OF GALLBLADDER W/O CHOLECYSTITIS W/O OBSTRUCTION Qualifiers: Cholelithiasis location: gallbladder Cholecystitis presence: with cholecystitis Cholecystitis acuity: acute Biliary obstruction: without biliary obstruction Qualified Code(s): K80.00 - Calculus of gallbladder with acute cholecystitis without obstruction
[2018-11-14] MEDS ORDERED: LACTATED RINGERS SOLUTION 1,000 ML/1,000 ML INFUS.BAG IV SCH ×2 (14:15→14:18)
[2018-11-14] MEDS ORDERED: MORPHINE SULFATE 2 MG/ML VIAL IVPUSH PRN ×2 (14:18→17:52)
[2018-11-14] MEDS ORDERED: ONDANSETRON 4 MG/2 ML VIAL IVPUSH PRN (14:23)
[2018-11-14] MEDS ORDERED: LACTATED RINGERS SOLUTION 1,000 ML IV SCH (14:30)
[2018-11-14 14:33] LABS: EPI CELLS 9.1 /HPF (0-5/HPF); HYALINE CASTS 1 /lpf (0-8); PH,URINE 7.5 (5.0-8.0); URINE APPEARANCE CLEAR; URINE BACTERIA 272.2 /hpf (NEGATIVE); URINE BILIRUBIN NEGATIVE (NEGATIVE); URINE COLOR YELLOW; URINE GLUCOSE (UA) TRACE (NEGATIVE); URINE KETONE NEGATIVE (NEGATIVE); URINE LEUK ESTERASE NEGATIVE (NEGATIVE); URINE NITRITE NEGATIVE (NEGATIVE); URINE PROTEIN 1+ (NEGATIVE); URINE RBC 1 /hpf (0-4); URINE WBC 4 /hpf (0-5)
[2018-11-14] MEDS: LACTATED RINGERS SOLUTION 1,000 ML IV SCH (17:52)
--- NOTE | 2018-11-14 17:54 | CONSULT ---
Consult Consult Specialty:: General Surgery Referred by:: Tamy Lynn Reason for Consultation:: ? acute cholecystitis - History of Present Illness Chief Complaint: epigastric, RUQ pain radiating to back History of Present Illness: 28yo F with h/o anemia (no longer on iron supplementation), c-sections x4, began having RUQ and epigastric pain early Friday morning. She had rice and chicken for lunch, but just lettuce and cucumbers for dinner. She denies associated N/V, F/C, diarrhea or constipation, had normal BM Friday afternoon. She had similar pain about 2 years ago, and went to a hospital, but the pain got better on its own, and she does not recall any imaging tests at the time, or being told anything about her gallbladder. Her thinks her blood work was normal at the time. The pain yesterday came and went, but got bad enough that she came to ER, where she had wbc 12, normal LFTs and lipase, but was anemic with Hb 7.2. She was transfused with blood, and had US showing some inspissated bile and sludge in gallbladder with few stones, borderline thickened wall, no surrounding fluid, and CBD dilated at 8mm. She was given IV fluids, pain meds, and admitted to medicine. Surgery was asked to assess. Today, she was seen by GI earlier, and WBC and LFTs both noted to rise. MRCP had been planned, but she was taken for urgent ERCP instead, with findings of ampullary stenosis and no bile return. On duct cannulation and sphincterotomy, copious purulent bile return was encountered, indicating cholangitis. No stones were identified. She is now on IV antibiotics and fluids. She is seen and examined in bed, shortly after returning from the procedure, with her present (he assisted with Austrian). She is groggy, but able to answer questions. She denies pain anymore, but describes the initial pain as RUQ and epigastric radiating to her back. - History Source History Provided By: Patient, Family Member ( at bedside) Limitations to Obtaining History: Language Barrier (Austrian - assisted at bedside) - Past Medical History Reproductive: Yes: Other (IUD identified on pelvic US) ...LMP: 10/27/18 ...: No Heme/Onc: Yes: Anemia - Past Surgical History Past Surgical History: Yes: (x4) Additional Surgical History: IUD identified on pelvic US (pt denies h/o control) - Alcohol/Substance Use Hx Alcohol Use: No History of Substance Use: reports: None - Smoking History Smoking history: Never smoked Have you smoked in the past 12 months: No - Social History Usual Living Arrangement: With Spouse ADL: Independent Occupation: does not work Home Medications - Allergies Allergies/Adverse Reactions: Allergies Allergy/AdvReac Type Severity Reaction Status Date / Time No Known Allergies Allergy Verified 11/13/18 16:48 - Home Medications Home Medications: Ambulatory Orders NK [No Known Home Medication] 11/13/18 Family Medical History Family History: Unremarkable (noncontributory) Review of Systems - Review of Systems Constitutional: denies: Chills, Fever Eyes: denies: Blurred Vision, Recent Change in Vision HENT: denies: Difficult Swallowing, Throat Pain Neck: denies: Swollen Glands, Tenderness Cardiovascular: denies: Chest Pain, Palpitations Respiratory: denies: Cough, SOB Gastrointestinal: reports: Abdominal Pain (with hpi). denies: Constipation, Diarrhea, Nausea, Vomiting Genitourinary: denies: Burning, Dysuria Musculoskeletal: denies: Back Pain, Joint Pain, Muscle Pain Integumentary: denies: Change in Color, Rash Neurological: denies: Dizziness, Headache Physical Exam Vital Signs: Vital Signs Temperature 98.4 F 11/14/18 16:35 Pulse Rate 58 L 11/14/18 16:35 Respiratory Rate 18 11/14/18 16:35 Blood Pressure 138/80 11/14/18 16:35 O2 Sat by Pulse Oximetry (%) 97 11/14/18 16:35 Constitutional: Yes: Well Nourished, No Distress, Calm Eyes: Yes: Conjunctiva Clear, EOM Intact. No: Sclera Icterus HENT: Yes: Atraumatic, Normocephalic Neck: Yes: Supple, Trachea Midline Cardiovascular: Yes: Regular Rate and Rhythm Respiratory: Yes: Regular, CTA Bilaterally Gastrointestinal: Yes: Normal Bowel Sounds, Soft, Abdomen, Obese, Other (well- healed Pfannenstiel scars). No: Tenderness, Tenderness, Epigastrium ...Rectal Exam: Yes: Deferred Renal/: No: CVA Tenderness - Left, CVA Tenderness - Right Musculoskeletal: No: Joint Stiffness, Joint Swelling Extremities: No: Cool, Cyanosis Edema: No Peripheral Pulses WNL: Yes Integumentary: No: Jaundice, Rash Neurological: Yes: Alert (sleepy, but wakes and able to answer questions), Oriented, Lethargy Psychiatric: Yes: Alert, Oriented Labs: CBC, BMP 11/14/18 12:30 11/14/18 07:00 CMP Sodium 134 mmol/L (136-145) L 11/14/18 07:00 Potassium 3.9 mmol/L (3.5-5.1) 11/14/18 07:00 Chloride 102 mmol/L (98-107) 11/14/18 07:00 Carbon Dioxide 24 mmol/L (21-32) 11/14/18 07:00 Anion Gap 8 MMOL/L (8-16) 11/14/18 07:00 BUN 6.2 mg/dL (7-18) L 11/14/18 07:00 Creatinine 0.5 mg/dL (0.55-1.3) L 11/14/18 07:00 Est GFR (CKD-EPI)AfAm 151.59 11/14/18 07:00 Est GFR (CKD-EPI)NonAf 130.79 11/14/18 07:00 Random Glucose 135 mg/dL (74-106) H 11/14/18 07:00 Calcium 8.4 mg/dL (8.5-10.1) L 11/14/18 07:00 Phosphorus 2.8 mg/dL (2.5-4.9) 11/14/18 07:00 Magnesium 1.9 mg/dL (1.8-2.4) 11/14/18 07:00 Iron 11 ug/dL (50-175) L 11/13/18 17:25 TIBC 463 ug/dL (250-450) H 11/13/18 17:25 Iron Saturation 2 % (17.5-39) L 11/13/18 17:25 Unsaturated IBC 452 ug/dL (200-275) H 11/13/18 17:25 Ferritin 4.0 ng/ml (8-388) L 11/13/18 17:25 Total Bilirubin 2.8 mg/dL (0.2-1) H D 11/14/18 07:00 AST 691 U/L (15-37) H 11/14/18 07:00 ALT 630 U/L (13-61) H 11/14/18 07:00 Alkaline Phosphatase 189 U/L (45-117) H 11/14/18 07:00 Troponin I < 0.02 ng/ml (0.00-0.05) 11/14/18 01:30 Total Protein 7.7 g/dl (6.4-8.2) 11/14/18 07:00 Albumin 3.9 g/dl (3.4-5.0) 11/14/18 07:00 Lipase 121 U/L (73-393) 11/13/18 17:25 Vitamin B12 345 pg/ml (193-986) 11/13/18 17:25 Serum Folate 19 ng/mL (3.1-17.5) H 11/13/18 17:25 Beta HCG, Quant < 1.0 mIU/ml 11/13/18 17:25 Serum , Qual Negative 11/13/18 19:37 increased wbc increased LFTs normal lipase Hb increasing s/p transfusion of blood INR, PTT INR 1.14 (0.83-1.09) H 11/13/18 17:25 Urine Test Results Urine Color Yellow 11/13/18 13:00 Urine Appearance Clear 11/13/18 13:00 Urine pH 7.5 (5.0-8.0) 11/13/18 13:00 Ur Specific [place] 1.016 (1.010-1.035) 11/13/18 13:00 Urine Protein 1+ (NEGATIVE) H 11/13/18 13:00 Urine Glucose (UA) Trace (NEGATIVE) 11/13/18 13:00 Urine Ketones Negative (NEGATIVE) 11/13/18 13:00 Urine Blood Negative (NEGATIVE) 11/13/18 13:00 Urine Nitrite Negative (NEGATIVE) 11/13/18 13:00 Urine Bilirubin Negative (NEGATIVE) 11/13/18 13:00 Ur Leukocyte Esterase Negative (NEGATIVE) 11/13/18 13:00 Imaging - Results Ultrasound: Report Reviewed (few gallstones and sludge in gallbladder with borderline wall thickening, distended, no pericholecystic fluid, CBD dilated at 8mm) Problem List - Problems (1) Bile duct stricture Assessment/Plan: s/p ERCP by GI today with sphincterotomy evacuation of copious purulent bile no common duct stones identified continue IV antibiotics - recommend ID consultation pt currently without pain or tenderness continue generous IV fluids sips of clears for now (would not give full liquids, as higher in fat) trend labs in am including lipase monitor for post-procedure pancreatitis will discuss timing of cholecystectomy pending lab trend and clinical status if no pancreatitis tomorrow, may be able to plan for Friday discussed with Dr. Jeong and Dr. 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
--- NOTE | 2018-11-14 18:37 | CONS ---
DATE OF CONSULTATION: 11/14/2018 REASON FOR CONSULTATION: Anemia and IUD displacement. HISTORY OF PRESENT ILLNESS: The patient is a 28-year-old female with a history of iron-deficiency anemia. She was admitted with chest pain and epigastric pain. She was afebrile with no nausea, vomiting, diarrhea or vaginal bleeding. On admission, her hemoglobin was 7.2, hematocrit was 25. She had a pelvic sonogram which showed an IUD in the lower uterine segment and a thickened endometrium. The patient denies any vaginal bleeding or vaginal discharge. 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 PHYSICAL EXAMINATION: GENERAL: On admission, the patient was comfortable, alert and awake. Her history was obtained from her . ABDOMEN: Soft, nontender. PELVIS: No masses were felt in the pelvic area. Pelvic exam showed external genitalia to be normal. Vagina had normal discharge. Cervix was clean. No lesions. IUD string was not seen. Uterus normal size. Adnexa with no masses palpable. No cervical motion tenderness. 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 RECOMMENDATIONS: The patient stated that her periods are only for two to three days and they are not heavy. Rule out other causes of chronic anemia. As far as her IUD, the patient can follow up as an outpatient for followup, Pap smear and possible removal of the IUD. The results were explained to the patient. Fernie [id number]
[2018-11-14] MEDS ORDERED: DEXTROSE 5%-WATER 100 ML IVPB ONE (21:04)
[2018-11-14] MEDS ORDERED: PIPERACILLIN/TAZOBACTAM 4.5 GM VIAL IVPB ONE (21:04)
[2018-11-14] MEDS: PIPERACILLIN/TAZOB 4.5 GM 4.5 GM in DEXTROSE 5%-WATER 100 ML IVPB SCH (21:24)
[2018-11-14] MEDS ORDERED: PT OWN MED DRAWER 7, Y5N ONE (22:47)
[2018-11-15] MEDS: LACTATED RINGERS SOLUTION 1,000 ML IV SCH ×2 (00:17→08:59)
[2018-11-15] MEDS ORDERED: PIPERACILLIN/TAZOBACTAM 4.5 GM VIAL IVPB ONE ×3 (03:10→16:45)
[2018-11-15] MEDS ORDERED: DEXTROSE 5%-WATER 100 ML IVPB ONE ×3 (03:11→16:45)
[2018-11-15] MEDS: PIPERACILLIN/TAZOB 4.5 GM 4.5 GM in DEXTROSE 5%-WATER 100 ML IVPB SCH ×3 (03:36→18:27)
[2018-11-15] MEDS: ACETAMINOPHEN 1000 MG/100 ML VIAL (NON FORMULARY) IVPB PRN ×3 (06:07→23:43)
[2018-11-15 07:42] LABS: ALBUMIN 3.2 g/dl (3.4-5.0); ALK PHOS 212 U/L (45-117); AMYLASE > 1300 U/L (25-115); ANION GAP 9 MMOL/L (8-16); BILIRUBIN,TOTAL 3.7 mg/dL (0.2-1); BLOOD UREA NITROGEN 9.2 mg/dL (7-18); CALCIUM 8.2 mg/dL (8.5-10.1); CHLORIDE 108 mmol/L (98-107); CO2 25 mmol/L (21-32); CREATININE 0.7 mg/dL (0.55-1.3); GLUCOSE,RANDOM 114 mg/dL (74-106); LIPASE 12443 U/L (73-393); POTASSIUM 3.2 mmol/L (3.5-5.1); SGOT/AST 297 U/L (15-37); SGPT/ALT 487 U/L (13-61); SODIUM 141 mmol/L (136-145); TOT PROT 6.6 g/dl (6.4-8.2)
[2018-11-15 08:25] LABS: BASO % 0.2 % (0-2.0); HEMATOCRIT 26.8 % (32.4-45.2); HEMOGLOBIN 7.9 GM/dL (10.7-15.3); LYMPH % 10.6 % (8-40); MCHC 29.5 g/dl (32.0-36.0); MEAN CELL VOLUME 57.5 fl (80-96); MEAN PLT VOLUME 8.9 fl (7.5-11.1); NEUT % 83.2 % (42.8-82.8); PLATELET COUNT 317 K/MM3 (134-434); RBC 4.67 M/mm3 (3.60-5.2); RDW 22.4 % (11.6-15.6); WHITE BLOOD COUNT 11.2 K/mm3 (4.0-10.0)
[2018-11-15 08:28] LABS: MCH 16.9 pg (25.7-33.7)
[2018-11-15] MEDS ORDERED: cefTRIAXone SODIUM 1 GM VIAL ONE (08:47)
[2018-11-15] MEDS ORDERED: DEXTROSE 5%-WATER - 50 ML IVPB ONE (08:48)
--- NOTE | 2018-11-15 09:01 | CON.ID ---
Consult Consult Specialty:: infectious diseases Referred by:: Reason for Consultation:: abd pain,cholecystitis - History of Present Illness Chief Complaint: abd pain History of Present Illness: 28yo F with h/o anemia , c-sections x4, began having RUQ and epigastric pain early Stiven morning.not associated with nausa vominting or dirrhoea Pain came off and on and became worse about 2 days back.Patient came to the ER was dounfd to be anemic,receive transfusion and on work up US showed some inspissated bile and sludge in gallbladder with few stones, borderline thickened wall, no surrounding fluid, and CBD dilated at 8mm. She was given IV fluids, pain meds, and admitted to medicine. Surgery was asked to assess. 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 currently feeling better still some pain present on abx - History Source History Provided By: Patient, Medical Record Limitations to Obtaining History: Language Barrier - Past Medical History ...LMP: 10/27/18 ...: No - Past Surgical History Past Surgical History: Yes: (x4) Additional Surgical History: IUD identified on pelvic US (pt denies h/o control) - Alcohol/Substance Use Hx Alcohol Use: No History of Substance Use: reports: None - Smoking History Smoking history: Never smoked Have you smoked in the past 12 months: No - Social History Usual Living Arrangement: With Spouse ADL: Independent Occupation: does not work Home Medications - Allergies Allergies/Adverse Reactions: Allergies Allergy/AdvReac Type Severity Reaction Status Date / Time No Known Allergies Allergy Verified 11/13/18 16:48 - Home Medications Home Medications: Ambulatory Orders NK [No Known Home Medication] 11/13/18 Review of Systems - Review of Systems Constitutional: reports: No Symptoms Eyes: reports: No Symptoms HENT: reports: No Symptoms Neck: reports: No Symptoms Cardiovascular: reports: No Symptoms Respiratory: reports: No Symptoms Gastrointestinal: reports: Abdominal Pain Genitourinary: reports: No Symptoms Musculoskeletal: reports: No Symptoms Integumentary: reports: No Symptoms Neurological: reports: No Symptoms Endocrine: reports: No Symptoms Hematology/Lymphatic: reports: No Symptoms Psychiatric: reports: No Symptoms Physical Exam Vital Signs: Vital Signs Temperature 98.9 F 11/15/18 06:01 Pulse Rate 59 L 11/15/18 06:01 Respiratory Rate 16 11/15/18 07:00 Blood Pressure 129/77 11/15/18 06:01 O2 Sat by Pulse Oximetry (%) 99 11/15/18 07:00 Constitutional: Yes: Well Nourished, Calm, Mild Distress Eyes: Yes: Conjunctiva Clear Neck: Yes: Supple, Trachea Midline Cardiovascular: Yes: Regular Rate and Rhythm Respiratory: Yes: Regular, CTA Bilaterally Gastrointestinal: Yes: Soft, Tenderness (ruq) Musculoskeletal: Yes: WNL Extremities: Yes: WNL Neurological: Yes: Alert, Oriented Psychiatric: Yes: Alert, Oriented Labs: CBC, BMP 11/15/18 06:45 11/15/18 06:46 Imaging - Results Chest X-ray: Report Reviewed, Image Reviewed Ultrasound: Report Reviewed, Image Reviewed Assessment/Plan Problem List - Problems (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 - OBSTRUCTION OF BILE DUCT (2) Acute obstructive cholangitis Code(s): K83.09 - OTHER CHOLANGITIS (3) Calculus of gallbladder without cholecystitis with obstruction Code(s): K80.21 - CALCULUS OF GALLBLADDER W/O CHOLECYSTITIS WITH OBSTRUCTION (4) RUQ pain Code(s): R10.11 - RIGHT UPPER QUADRANT PAIN (5) Anemia Code(s): D64.9 - ANEMIA, UNSPECIFIED Qualifiers: Anemia type: iron deficiency Iron deficiency anemia type: unspecified iron deficiency Qualified Code(s): D50.9 - Iron deficiency anemia, unspecified 5 leukocytosis plan started on zosyn continue zosyn await for final surgical plan wbc trending down monitor rest as per the team
--- NOTE | 2018-11-15 09:21 | PN ---
Progress Note (short form) - Note Progress Note: Pt reports feeling much improved. Tolerating liquid diet. Abdomen soft and nontender on palpation, markedly different from yesterday. Labs consistent with post-ERCP pancreatitis but WBC down this a.m.: Abnormal Lab Results 11/13/18 11/13/18 11/14/18 13:00 17:25 01:03 WBC RBC Hgb Hct MCV MCH MCHC RDW Absolute Neuts (auto) Neutrophils % Lymphocytes % Potassium Chloride Random Glucose Calcium Transferrin 375 H Total Bilirubin AST ALT Alkaline Phosphatase Albumin Total Amylase Lipase Urine Protein 1+ H Crossmatch See Detail 11/14/18 11/15/18 11/15/18 12:30 06:45 06:46 WBC 14.7 H 11.2 H RBC 5.44 H Hgb 9.4 L 7.9 L Hct 31.8 L 26.8 L D MCV 58.6 L 57.5 L MCH 17.3 L 16.9 L MCHC 29.6 L 29.5 L RDW 22.3 H 22.4 H Absolute Neuts (auto) 12.8 H 9.3 H Neutrophils % 87.3 H 83.2 H Lymphocytes % 6.4 L Potassium 3.2 L Chloride 108 H Random Glucose 114 H Calcium 8.2 L Transferrin Total Bilirubin 3.7 H AST 297 H ALT 487 H Alkaline Phosphatase 212 H Albumin 3.2 L Total Amylase > 1300 H Lipase 79546 H Urine Protein Crossmatch Note bilirubin up slightly but AST and ALT markedly down, alk phos essentially the same, and her symptoms are much improved. I suspect there is some edema at the sphincterotomy site related to her pancreatitis and her bili and alk phos will come down as her pancreatitis resolves. Problem List - Problems (1) Cholelithiasis Code(s): K80.20 - CALCULUS OF GALLBLADDER W/O CHOLECYSTITIS W/O OBSTRUCTION Qualifiers: Cholelithiasis location: gallbladder Cholecystitis presence: with cholecystitis Cholecystitis acuity: acute Biliary obstruction: without biliary obstruction Qualified Code(s): K80.00 - Calculus of gallbladder with acute cholecystitis without obstruction
--- NOTE | 2018-11-15 09:59 | PN ---
Physical Exam: SUBJECTIVE: Patient seen and examined. She feels much better today. She reports having some abdominal pain but much less severe than yesterday. She is tolerating a clear liquid diet. OBJECTIVE: Vital Signs Period Temp Pulse Resp BP Sys/Raya Pulse Ox Last 24 Hr 98.1 F-99.1 F 50-78 16-18 115-147/57-89 97-100 GENERAL: The patient is awake, alert, and fully oriented, in moderate distress secondary to pain. EYES: Sclerae icteric, conjunctiva clear. LUNGS: Breath sounds equal, clear to auscultation bilaterally, no wheezes, no crackles, no accessory muscle use. HEART: Regular rate and rhythm, S1, S2 without murmur, rub or gallop. ABDOMEN: Obese, soft, nondistended, (+) mild epigastric tenderness, normoactive bowel sounds, no hepatosplenomegaly, no masses. EXTREMITIES: 2+ pulses, warm, well-perfused, no edema. Laboratory Results - last 24 hr 11/13/18 11/14/18 11/14/18 13:00 01:03 12:30 WBC 14.7 H RBC 5.44 H Hgb 9.4 L Hct 31.8 L MCV 58.6 L MCH 17.3 L MCHC 29.6 L RDW 22.3 H Plt Count 381 MPV 9.2 Absolute Neuts (auto) 12.8 H Neutrophils % 87.3 H Lymphocytes % 6.4 L Monocytes % 6.0 Eosinophils % 0.0 Basophils % 0.3 Nucleated RBC % 0 Sodium Potassium Chloride Carbon Dioxide Anion Gap BUN Creatinine Est GFR (CKD-EPI)AfAm Est GFR (CKD-EPI)NonAf Random Glucose Calcium Transferrin 375 H Ferritin Total Bilirubin AST ALT Alkaline Phosphatase Total Protein Albumin Total Amylase Lipase Vitamin B12 Urine Color Yellow Urine Appearance Clear Urine pH 7.5 Ur Specific [place] 1.016 Urine Protein 1+ H Urine Glucose (UA) Trace Urine Ketones Negative Urine Blood Negative Urine Nitrite Negative Urine Bilirubin Negative Urine Urobilinogen 1.0 Ur Leukocyte Esterase Negative Urine WBC (Auto) 4 Urine RBC (Auto) 1 Urine Casts (Auto) 1 U Epithel Cells (Auto) 9.1 Urine Bacteria (Auto) 272.2 11/15/18 11/15/18 06:45 06:46 WBC 11.2 H RBC 4.67 Hgb 7.9 L Hct 26.8 L D MCV 57.5 L MCH 16.9 L MCHC 29.5 L RDW 22.4 H Plt Count 317 MPV 8.9 Absolute Neuts (auto) 9.3 H Neutrophils % 83.2 H Lymphocytes % 10.6 D Monocytes % 6.0 Eosinophils % 0.0 Basophils % 0.2 Nucleated RBC % 0 Sodium 141 Potassium 3.2 L Chloride 108 H Carbon Dioxide 25 Anion Gap 9 BUN 9.2 Creatinine 0.7 Est GFR (CKD-EPI)AfAm 135.70 Est GFR (CKD-EPI)NonAf 117.08 Random Glucose 114 H Calcium 8.2 L Transferrin Ferritin 10.0 Total Bilirubin 3.7 H AST 297 H ALT 487 H Alkaline Phosphatase 212 H Total Protein 6.6 Albumin 3.2 L Total Amylase > 1300 H Lipase 16719 H Vitamin B12 694 Urine Color Urine Appearance Urine pH Ur Specific [place] Urine Protein Urine Glucose (UA) Urine Ketones Urine Blood Urine Nitrite Urine Bilirubin Urine Urobilinogen Ur Leukocyte Esterase Urine WBC (Auto) Urine RBC (Auto) Urine Casts (Auto) U Epithel Cells (Auto) Urine Bacteria (Auto) Active Medications Generic Name Dose Route Start Last Admin Trade Name Freq PRN Reason Stop Dose Admin Acetaminophen 1,000 mg 11/14/18 17:49 11/15/18 06:07 Ofirmev Injection - IVPB 1,000 mg Q6H PRN Administration Pain Level 4 - 10 Metronidazole 500 mg in 100 mls @ 100 mls/hr 11/14/18 18:00 11/15/18 09:01 Flagyl 500mg Premixed Ivpb - IVPB 100 mls/hr Q8H-IV HEMANTH Administration Lactated Ringer's 1,000 mls @ 150 mls/hr 11/14/18 17:52 11/15/18 08:59 Lactated Ringers Solution IV 150 mls/hr ASDIR HEMANTH Administration Piperacillin Sod/Tazobactam 100 mls @ 200 mls/hr 11/14/18 20:30 11/15/18 09: 00 Sod 4.5 gm/ Dextrose IVPB 200 mls/hr Q8H-IV HEMANTH Administration Protocol Morphine Sulfate 2 mg 11/14/18 17:52 Morphine Sulfate IVPUSH Q4H PRN Pain Level 7-10 BREAKTHROUGH Ondansetron HCl 4 mg 11/14/18 14:23 Zofran Injection IVPUSH Q6H PRN NAUSEA AND/OR VOMITING ASSESSMENT/PLAN: This is a 28 year old woman with a history of iron-deficiency anemia, pre- eclampsia who presented to the ED with chest and epigastric pain radiating to her back. 1. 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 Post-ERCP pancreatitis - Continue IV fluid - Continue clear liquid diet 3. Hypokalemia - Replete potassium 4. Iron-deficiency anemia - Transfused 1 unit PRBCs - Hgb 7.9 today - continue to monitor - Continue ferrous sulfate 5. Obesity with BMI 31.1 Visit type - Emergency Visit Emergency Visit: Yes ED Registration Date: 11/13/18 Care time: The patient presented to the Emergency Department on the above date and was hospitalized for further evaluation of their emergent condition. - New Patient This patient is new to me today: No - Critical Care Critical Care patient: No - Discharge Referral Referred to [facility] No
[2018-11-15] MEDS ORDERED: CEFTRIAXONE 1 GM in DEXTROSE 5%-WATER - 50 ML IVPB SCH (10:00)
[2018-11-15] MEDS ORDERED: POTASSIUM CHLORIDE TABS 20 MEQ TABLET.ER (FP) PO ONE (10:51)
--- NOTE | 2018-11-15 12:08 | PN ---
Progress Note (short form) - Note Progress Note: 28 yo F s/p GA for ERCP pt feels well, no complaints cont current mgmt good result anesthetic care
--- NOTE | 2018-11-15 13:09 | PN ---
Progress Note, Physician History of Present Illness: Patient with cholangitis from bile duct/ampullary stricture and cholelithiasis, s/p ERCP with sphincterotomy and purulent bile drainage. She is seen and examined in bed, with family present, feeling better. She notes a little pain still in epigastric area, which she says is a little worse with clear liquids. She has passed gas but no BM yet. Voiding well. Ambulated, much more awake than when seen yesterday. Labs today show decrease in wbc, Hb (dilutional?), AST/ALT, but elevated bili, high amylase and lipase consistent with post-ERCP pancreatitis. Hb down a bit, may be dilutional Urine culture from admission is growing >100K presumptive MSSA. On Zosyn per ID , Leanna now d/c'd. - Current Medication List Current Medications: Active Medications Acetaminophen (Ofirmev Injection -) 1,000 mg IVPB Q6H PRN PRN Reason: Pain Level 4 - 10 Last Admin: 11/15/18 06:07 Dose: 1,000 mg Lactated Ringer's (Lactated Ringers Solution) 1,000 mls @ 150 mls/hr IV ASDIR HEMANTH Last Admin: 11/15/18 08:59 Dose: 150 mls/hr Piperacillin Sod/Tazobactam (Sod 4.5 gm/ Dextrose) 100 mls @ 200 mls/hr IVPB Q8H-IV HEMANTH; Protocol Last Admin: 11/15/18 09:00 Dose: 200 mls/hr Morphine Sulfate (Morphine Sulfate) 2 mg IVPUSH Q4H PRN PRN Reason: Pain Level 7-10 BREAKTHROUGH Last Admin: 11/15/18 11:04 Dose: 2 mg Ondansetron HCl (Zofran Injection) 4 mg IVPUSH Q6H PRN PRN Reason: NAUSEA AND/OR VOMITING - Objective Vital Signs: Vital Signs Temperature 98.8 F 11/15/18 09:10 Pulse Rate 63 11/15/18 09:10 Respiratory Rate 16 11/15/18 09:10 Blood Pressure 136/85 11/15/18 09:10 O2 Sat by Pulse Oximetry (%) 99 11/15/18 07:00 Constitutional: Yes: Well Nourished, No Distress, Calm Eyes: Yes: Conjunctiva Clear, EOM Intact HENT: Yes: Atraumatic, Normocephalic Gastrointestinal: Yes: Soft, Distention (mild), Tenderness (RUQ mild, no breezy/ guard), Tenderness, Epigastrium (more than RUQ) Extremities: No: Cool, Cyanosis Integumentary: Yes: Jaundice. No: Rash Neurological: Yes: Alert, Oriented Labs: CBC, BMP 11/15/18 06:45 11/15/18 06:46 CMP Sodium 141 mmol/L (136-145) 11/15/18 06:46 Potassium 3.2 mmol/L (3.5-5.1) L 11/15/18 06:46 Chloride 108 mmol/L (98-107) H 11/15/18 06:46 Carbon Dioxide 25 mmol/L (21-32) 11/15/18 06:46 Anion Gap 9 MMOL/L (8-16) 11/15/18 06:46 BUN 9.2 mg/dL (7-18) 11/15/18 06:46 Creatinine 0.7 mg/dL (0.55-1.3) 11/15/18 06:46 Est GFR (CKD-EPI)AfAm 135.70 11/15/18 06:46 Est GFR (CKD-EPI)NonAf 117.08 11/15/18 06:46 Random Glucose 114 mg/dL (74-106) H 11/15/18 06:46 Calcium 8.2 mg/dL (8.5-10.1) L 11/15/18 06:46 Phosphorus 2.8 mg/dL (2.5-4.9) 11/14/18 07:00 Magnesium 1.9 mg/dL (1.8-2.4) 11/14/18 07:00 Iron 11 ug/dL (50-175) L 11/13/18 17:25 TIBC 463 ug/dL (250-450) H 11/13/18 17:25 Iron Saturation 2 % (17.5-39) L 11/13/18 17:25 Unsaturated IBC 452 ug/dL (200-275) H 11/13/18 17:25 Transferrin 375 mg/dL (200-370) H 11/14/18 01:03 Ferritin 10.0 ng/ml (8-388) 11/15/18 06:46 Total Bilirubin 3.7 mg/dL (0.2-1) H 11/15/18 06:46 AST 297 U/L (15-37) H 11/15/18 06:46 ALT 487 U/L (13-61) H 11/15/18 06:46 Alkaline Phosphatase 212 U/L (45-117) H 11/15/18 06:46 Troponin I < 0.02 ng/ml (0.00-0.05) 11/14/18 01:30 Total Protein 6.6 g/dl (6.4-8.2) 11/15/18 06:46 Albumin 3.2 g/dl (3.4-5.0) L 11/15/18 06:46 Total Amylase > 1300 U/L (25-115) H 11/15/18 06:46 Lipase 49359 U/L (73-393) H 11/15/18 06:46 Vitamin B12 694 pg/ml (193-986) 11/15/18 06:46 Serum Folate 19 ng/mL (3.1-17.5) H 11/13/18 17:25 Beta HCG, Quant < 1.0 mIU/ml 11/13/18 17:25 Serum , Qual Negative 11/13/18 19:37 Microbiology 11/13/18 23:10 Urine Culture - Preliminary Urine - Urine Clean Catch Presumptive Mssa (Pbp2a Neg) Problem List - Problems (1) Bile duct stricture Assessment/Plan: s/p ERCP by GI with sphincterotomy evacuation of copious purulent bile no common duct stones identified post-ERCP pancreatitis by labs and exam continue IV antibiotics per ID pt currently with less pain, but tender RUQ/epigastric continue generous IV fluids ice chips and sips of water only for now - return to NPO, if continues to bring on pain trend labs including lipase in am replete lytes prn will need cholecystectomy may be able to do tomorrow - will check am labs and clinical exam in morning Discussed with patient (using Bengali phone technology training associate #[id number]) risks, benefits and alternatives of laparoscopic possible open cholecystectomy, including but not limited to bleeding, infection, injury to adjacent structures , bile leak or ductal injury, intraabdominal abscess, incisional hernia, need for further procedures; alternatives include antibiotics, delayed or no surgery - risks of this include choledocholithiasis, cholecystitis, cholangitis, pancreatitis, sepsis and sequelae. Patient agreeable to proceed with operation - will take to OR tomorrow for above pending improvement in pancreatitis. Informed consent signed for same. and family present for discussion - all questions answered. discussed with Dr. Babcock and Dr. Mcdonald Code(s): K83.1 - OBSTRUCTION OF BILE DUCT (2) Acute obstructive cholangitis Assessment/Plan: see above Code(s): K83.09 - OTHER CHOLANGITIS (3) Calculus of gallbladder without cholecystitis with obstruction Assessment/Plan: see above Code(s): K80.21 - CALCULUS OF GALLBLADDER W/O CHOLECYSTITIS WITH OBSTRUCTION (4) RUQ pain Assessment/Plan: improved but still present, epigastric little more today Code(s): R10.11 - RIGHT UPPER QUADRANT PAIN (5) Anemia Assessment/Plan: anemia most likely chronic - reports history of same around time of last [employer] note reviewed s/p transfusion 2 units PRBC with stable Hb H/H down a bit today - most likely dilutional from IV fluids yesterday - no evidence of active bleeding or blood loss trend labs, H/H if lower in am, could consider another unit PRBC defer to medical management Code(s): D64.9 - ANEMIA, UNSPECIFIED Qualifiers: Anemia type: iron deficiency Iron deficiency anemia type: unspecified iron deficiency Qualified Code(s): D50.9 - Iron deficiency anemia, unspecified
[2018-11-16] MEDS ORDERED: DEXTROSE 5%-WATER 100 ML IVPB ONE ×3 (00:49→17:32)
[2018-11-16] MEDS ORDERED: PIPERACILLIN/TAZOBACTAM 4.5 GM VIAL IVPB ONE ×3 (00:49→17:32)
[2018-11-16] MEDS: PIPERACILLIN/TAZOB 4.5 GM 4.5 GM in DEXTROSE 5%-WATER 100 ML IVPB SCH ×3 (01:08→09:18)
[2018-11-16 07:40] LABS: BASO % 0.6 % (0-2.0); EOS % 1.3 % (0-4.5); HEMATOCRIT 23.1 % (32.4-45.2); LYMPH % 17.6 % (8-40); MCHC 30.2 g/dl (32.0-36.0); MEAN CELL VOLUME 58.3 fl (80-96); MEAN PLT VOLUME 9.1 fl (7.5-11.1); MONO % 5.9 % (3.8-10.2); NEUT % 74.6 % (42.8-82.8); PLATELET COUNT 262 K/MM3 (134-434); RBC 3.96 M/mm3 (3.60-5.2); RDW 22.6 % (11.6-15.6); WHITE BLOOD COUNT 7.6 K/mm3 (4.0-10.0)
[2018-11-16 08:00] LABS: ALBUMIN 2.3 g/dl (3.4-5.0); BLOOD UREA NITROGEN 7.1 mg/dL (7-18); CALCIUM 7.8 mg/dL (8.5-10.1); CREATININE 0.4 mg/dL (0.55-1.3); MAGNESIUM 1.4 mg/dL (1.8-2.4); PHOSPHOROUS 1.3 mg/dL (2.5-4.9); POTASSIUM 3.7 mmol/L (3.5-5.1); TOT PROT 4.8 g/dl (6.4-8.2)
[2018-11-16 08:27] LABS: MCH 17.6 pg (25.7-33.7)
[2018-11-16 09:15] LABS: INR 1.23 (0.83-1.09); PROTHROMBIN TIME (PATIENT) 14.6 SEC (9.7-13.0)
--- NOTE | 2018-11-16 09:39 | PN ---
Progress Note (short form) - Note Progress Note: HPI: Pt today reports uneventful night. She states her pain is slightly better but lingering in her mid-epigastric region. No nausea, vomiting, fevers/chills, shortness of breath, chest pain, palpitations at this time Vital Signs Temperature 98.9 F 11/16/18 06:13 Pulse Rate 58 L 11/16/18 06:13 Respiratory Rate 18 11/16/18 06:13 Blood Pressure 140/80 11/16/18 06:13 O2 Sat by Pulse Oximetry (%) 99 11/15/18 21:00 PE: GEN: NAD, awake, alert, orientedx3 HEENT: NC/AT, JASE, sclera anicteric, MMM Neck: No JVD Lungs: CTA b/l without any wheezes or rales noted. On RA 99% CARD: RRR no murmurs appreciated EXT: No edema, wel-perfused, no calf tenderness Neuro: Nonfocal exam, sensation intact throughout Skin: No Jaundice CBC, BMP 11/16/18 06:45 11/16/18 06:45 Hepatic Panel Total Bilirubin 3.0 mg/dL (0.2-1) H 11/16/18 06:45 AST 119 U/L (15-37) H 11/16/18 06:45 ALT 273 U/L (13-61) H 11/16/18 06:45 Alkaline Phosphatase 156 U/L (45-117) H 11/16/18 06:45 Albumin 2.3 g/dl (3.4-5.0) L 11/16/18 06:45 Active Medications Acetaminophen (Ofirmev Injection -) 1,000 mg IVPB Q6H PRN PRN Reason: Pain Level 4 - 10 Last Admin: 11/15/18 23:43 Dose: 1,000 mg Lactated Ringer's (Lactated Ringers Solution) 1,000 mls @ 150 mls/hr IV ASDIR HEMANTH Last Admin: 11/15/18 08:59 Dose: 150 mls/hr Piperacillin Sod/Tazobactam (Sod 4.5 gm/ Dextrose) 100 mls @ 200 mls/hr IVPB Q8H-IV HEMANTH; Protocol Last Admin: 11/16/18 09:18 Dose: 200 mls/hr Potassium Phosphate 30 mm/ (Sodium Chloride) 260 mls @ 62.5 mls/hr IVPB ONCE ONE Stop: 11/16/18 13:45 Magnesium Sulfate (Magnesium Sulfate) 2 gm IVPB ONCE ONE Stop: 11/16/18 09:37 Morphine Sulfate (Morphine Sulfate) 2 mg IVPUSH Q4H PRN PRN Reason: Pain Level 7-10 BREAKTHROUGH Last Admin: 11/15/18 11:04 Dose: 2 mg Ondansetron HCl (Zofran Injection) 4 mg IVPUSH Q6H PRN PRN Reason: NAUSEA AND/OR VOMITING Microbiology 11/13/18 23:10 Urine - Urine Clean Catch Urine Culture - Preliminary Presumptive Mssa (Pbp2a Neg) A/P Acute cholangitis 2/2 to ampulla of Vater stricture Post-ERCP pancreatitis Asymptomatic Bacteruria Iron deficiency anemia HypoMg HypoPhosphatemia --NPO for possible OR today by Dr. Escudero --LR@150cc/hr to continue --Morphine 2mg q4h for pain control PRN --Continue Zosyn q8h for cholangitis --Asymptomic bacteruria would also be covered by this; monitor for signs/ symptoms of UTI --LFTs, Total bili, and lipase all trending down however remains slightly elevated FEN: Fluids: LR@150cc/hr Electrolyte abnormalities: Repleted Mg with MgSulfate 2gm, Repleted phos with KPhos 30mmol Nutrition: NPO for potential procedure PPX: DVT - SCDs only Dispo: Continue to monitor and potential OR procedure Case discussed with Dr. Yoko Crawford, DO - IM PGY-3
[2018-11-16] MEDS: MAGNESIUM SULF 50% (8.12 MEQ/2 ML-1 GM VIAL) IVPB ONE ×2 (09:59→17:46)
[2018-11-16] MEDS ORDERED: POTASSIUM PHOSPHATE 30 MM in SODIUM CHLORIDE 250 ML IVPB ONE (10:30)
[2018-11-16] MEDS ORDERED: MAGNESIUM SULF 50% (8.12 MEQ/2 ML-1 GM VIAL) IVPB ONE (10:30)
--- NOTE | 2018-11-16 10:41 | PN ---
Progress Note, Physician History of Present Illness: stable patient going for surgery - Current Medication List Current Medications: Active Medications Acetaminophen (Ofirmev Injection -) 1,000 mg IVPB Q6H PRN PRN Reason: Pain Level 4 - 10 Last Admin: 11/15/18 23:43 Dose: 1,000 mg Lactated Ringer's (Lactated Ringers Solution) 1,000 mls @ 150 mls/hr IV ASDIR HEMANTH Last Admin: 11/15/18 08:59 Dose: 150 mls/hr Piperacillin Sod/Tazobactam (Sod 4.5 gm/ Dextrose) 100 mls @ 200 mls/hr IVPB Q8H-IV HEMANTH; Protocol Last Admin: 11/16/18 09:18 Dose: 200 mls/hr Potassium Phosphate 30 mm/ (Sodium Chloride) 260 mls @ 62.5 mls/hr IVPB ONCE ONE Stop: 11/16/18 14:39 Morphine Sulfate (Morphine Sulfate) 2 mg IVPUSH Q4H PRN PRN Reason: Pain Level 7-10 BREAKTHROUGH Last Admin: 11/15/18 11:04 Dose: 2 mg Ondansetron HCl (Zofran Injection) 4 mg IVPUSH Q6H PRN PRN Reason: NAUSEA AND/OR VOMITING - Objective Vital Signs: Vital Signs Temperature 98.5 F 11/16/18 09:59 Pulse Rate 54 L 11/16/18 09:59 Respiratory Rate 18 11/16/18 09:59 Blood Pressure 163/84 11/16/18 09:59 O2 Sat by Pulse Oximetry (%) 99 11/15/18 21:00 Constitutional: Yes: Calm, Mild Distress Cardiovascular: Yes: S1, S2 Respiratory: Yes: Regular, CTA Bilaterally Gastrointestinal: Yes: Normal Bowel Sounds, Soft Musculoskeletal: Yes: WNL Extremities: Yes: WNL Neurological: Yes: Alert, Oriented Psychiatric: Yes: Alert, Oriented Labs: CBC, BMP 11/16/18 06:45 11/16/18 06:45 INR, PTT INR 1.23 (0.83-1.09) H 11/16/18 08:30 Assessment/Plan Problem List - Problems (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
[2018-11-16] MEDS ORDERED: BUPIVACAINE HCL/PF 0.5% (5 MG/ML) 30 ML VIAL IJ ONE ×3 (12:14→15:59)
[2018-11-16] MEDS ORDERED: ROCURONIUM BROMIDE 50 MG/5 ML SYRINGE ONE ×2 (12:16→13:55)
[2018-11-16] MEDS ORDERED: fentaNYL CITRATE 250 MCG/5 ML VIAL ONE (12:16)
[2018-11-16] MEDS ORDERED: MIDAZOLAM HCL 2 MG/2 ML SINGLE DOSE VIAL ONE (12:16)
[2018-11-16] MEDS ORDERED: PROPOFOL 20 ML ONE (12:16)
[2018-11-16] MEDS ORDERED: ONDANSETRON 4 MG/2 ML VIAL IVPUSH PRN ×2 (15:04→17:27)
[2018-11-16] MEDS ORDERED: LACTATED RINGERS SOLUTION 1,000 ML IV SCH (15:15)
[2018-11-16] MEDS ORDERED: NEOSTIGMINE METHYLSULFATE 0.5 MG/ML - 10 ML MDV ONE (15:56)
[2018-11-16] MEDS ORDERED: GLYCOPYRROLATE 0.2 MG/1 ML VIAL ONE (15:57)
[2018-11-16] MEDS ORDERED: BENZOIN TINCTURE SWABSTICK TP ONE (16:10)
[2018-11-16] MEDS: LACTATED RINGERS SOLUTION 1,000 ML IV SCH (16:45)
--- NOTE | 2018-11-16 17:00 | SURG ---
Surgery Blueprint Machine Operator Note Blueprint Machine Operator: Aman Foreman PA-C (Suzy) Date of Service: 11/16/18 Diagnosis: Cholelithiasis, cholangitis secondary to CBD stricture s/p ERCP Procedure: Laparoscopic cholecystectomy I was present for the entirety of the operative procedure. For further detail, please refer to operative report. Visit type - Case Type Case Type: ED Admission - Emergency Emergency Visit: Yes ED Registration Date: 11/13/18 Care time: The patient presented to the Emergency Department on the above date and was hospitalized for further evaluation of their emergent condition. - New patient This patient is new to me today: Yes Date on this admission: 11/18/18 - Critical Care Critical Care patient: No
--- NOTE | 2018-11-16 17:01 | OP ---
Operative Note - Note: Operative Date: 11/16/18 Pre-Operative Diagnosis: cholelithiasis, cholangitis secondary to CBD stricture s/p ERCP Operation: laparoscopic cholecystectomy Findings: dense overlying adhesions, thickened wall, tense gallbladder decompressed of 40ml hydrops at start; multiple stones present - small spillage of bile, tiny stones at one point, suctioned; cystic artery identified leading onto gallbladder wall and clipped early; enlarged cystic duct ultimately clearly identified leading directly into/from gallbladder and clipped with 10mm Weck clips Post-Operative Diagnosis: Other (same as preop + chronic cholecystitis) Surgeon: Hero Escudero Bridges Supervisor: Aman Foreman (with José Weeks) Anesthesiologist/HOCKEY INSTRUCTOR: Claudette Yung MD (w/Mandy and Arina) Anesthesia: General ( ), Local (20ml 0.5% marcaine) Specimens Removed: gallbladder to pathology Estimated Blood Loss (mls): 100 Fluid Volume Replaced (mls): 2,000 (crystalloid) Operative Report Dictated: Yes
--- NOTE | 2018-11-16 17:16 | PN ---
Teaching Attending Note Name of Resident: Yon Crawford ATTENDING PHYSICIAN STATEMENT I saw and evaluated the patient. I reviewed the resident's note and discussed the case with the resident. I agree with the resident's findings and plan as documented. SUBJECTIVE: Patient reports some abdominal pain post-op. OBJECTIVE: Vital Signs Period Temp Pulse Resp BP Sys/Raya Pulse Ox Last 24 Hr 98.3 F-98.9 F 54-66 18-18 133-163/77-91 99 HEART: S1S2, RRR LUNGS: Clear ABDOMEN: Obese, soft, (+) mild diffuse tenderness, (+) mild distention, normal BS EXTREMITIES: No edema Laboratory Results - last 24 hr 11/16/18 11/16/18 11/16/18 06:45 06:45 06:45 WBC 7.6 RBC 3.96 Hgb 7.0 L Hct 23.1 L MCV 58.3 L MCH 17.6 L MCHC 30.2 L RDW 22.6 H Plt Count 262 MPV 9.1 Absolute Neuts (auto) 5.7 Neutrophils % 74.6 Lymphocytes % 17.6 D Monocytes % 5.9 Eosinophils % 1.3 D Basophils % 0.6 Nucleated RBC % 0 PT with INR INR Sodium 139 Potassium 3.7 Chloride 107 Carbon Dioxide 20 L Anion Gap 12 BUN 7.1 Creatinine 0.4 L Est GFR (CKD-EPI)AfAm 163.13 Est GFR (CKD-EPI)NonAf 140.75 Random Glucose 68 L Calcium 7.8 L Phosphorus 1.3 L Magnesium 1.4 L Total Bilirubin 3.0 H AST 119 H ALT 273 H Alkaline Phosphatase 156 H Total Protein 4.8 L Albumin 2.3 L Lipase 3682 H Blood Type B POSITIVE Antibody Screen Negative Crossmatch IS Only See Detail 11/16/18 08:30 WBC RBC Hgb Hct MCV MCH MCHC RDW Plt Count MPV Absolute Neuts (auto) Neutrophils % Lymphocytes % Monocytes % Eosinophils % Basophils % Nucleated RBC % PT with INR 14.60 H INR 1.23 H Sodium Potassium Chloride Carbon Dioxide Anion Gap BUN Creatinine Est GFR (CKD-EPI)AfAm Est GFR (CKD-EPI)NonAf Random Glucose Calcium Phosphorus Magnesium Total Bilirubin AST ALT Alkaline Phosphatase Total Protein Albumin Lipase Blood Type Antibody Screen Crossmatch IS Only Current Medications Generic Name Dose Route Start Last Admin Trade Name Freq PRN Reason Stop Dose Admin Acetaminophen 650 mg 11/17/18 00:00 Tylenol - PO Q6H HEMANTH Acetaminophen 1,000 mg 11/16/18 17:30 Ofirmev Injection - IVPB 11/16/18 17:31 ONCE ONE Fentanyl 50 mcg 11/16/18 15:04 Sublimaze Injection - IVPUSH [id number] PRN PAIN-PACU ORDER X 4 DOSES ONLY Piperacillin Sod/Tazobactam 100 mls @ 200 mls/hr 11/14/18 20:30 11/16/18 09: 18 Sod 4.5 gm/ Dextrose IVPB 200 mls/hr Q8H-IV HEMANTH Administration Protocol Lactated Ringer's 1,000 mls @ 75 mls/hr 11/16/18 15:15 Lactated Ringers Solution IV ASDIR HEMANTH Ibuprofen 600 mg 11/16/18 21:00 Motrin - PO Q6H HEMANTH Morphine Sulfate 2 mg 11/14/18 17:52 11/15/18 11:04 Morphine Sulfate IVPUSH 2 mg Q4H PRN Administration Pain Level 7-10 BREAKTHROUGH Ondansetron HCl 4 mg 11/16/18 15:04 Zofran Injection IVPUSH Q6H PRN NAUSEA AND/OR VOMITING ASSESSMENT AND PLAN: This is a 28 year old woman with a history of iron-deficiency anemia, pre- eclampsia who presented to the ED with chest and epigastric pain radiating to her back. 1. 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 Post-ERCP pancreatitis - Continue IV fluid - Continue clear liquid diet 3. Hypokalemia - Improved 4. Hypomagnesemia - Supplement magnesium 5. Hypophosphatemia - Supplement phosphorus 6. Iron-deficiency anemia - Transfused 1 unit PRBCs in OR - Transfused 1 unit PRBCs 11/14 - Continue ferrous sulfate 7. Obesity with BMI 31.1
[2018-11-16] MEDS ORDERED: ACETAMINOPHEN INJECTION 100 ML IVPB ONE (17:23)
[2018-11-16] MEDS ORDERED: MORPHINE SULFATE 2 MG/ML VIAL IVPUSH PRN (17:27)
[2018-11-16] MEDS ORDERED: ACETAMINOPHEN 1000 MG/100 ML VIAL (NON FORMULARY) IVPB ONE (17:30)
[2018-11-16 19:43] LABS: BASO % 0.7 % (0-2.0); HEMATOCRIT 30.4 % (32.4-45.2); HEMOGLOBIN 9.4 GM/dL (10.7-15.3); LYMPH % 7.1 % (8-40); MCHC 30.8 g/dl (32.0-36.0); MEAN PLT VOLUME 8.5 fl (7.5-11.1); MONO % 4.9 % (3.8-10.2); NEUT % 87.3 % (42.8-82.8); PLATELET COUNT 275 K/MM3 (134-434); RBC 5.07 M/mm3 (3.60-5.2); RDW 29.8 % (11.6-15.6); WHITE BLOOD COUNT 12.8 K/mm3 (4.0-10.0)
[2018-11-16 19:44] LABS: MCH 18.5 pg (25.7-33.7)
[2018-11-16 20:19] LABS: ALBUMIN 3.1 g/dl (3.4-5.0); BILIRUBIN,TOTAL 5.1 mg/dL (0.2-1); BLOOD UREA NITROGEN 8.8 mg/dL (7-18); CALCIUM 8.1 mg/dL (8.5-10.1); CREATININE 0.7 mg/dL (0.55-1.3); MAGNESIUM 2.8 mg/dL (1.8-2.4); PHOSPHOROUS 3.2 mg/dL (2.5-4.9); POTASSIUM 3.3 mmol/L (3.5-5.1); TOT PROT 6.3 g/dl (6.4-8.2)
[2018-11-16] MEDS ORDERED: IBUPROFEN 600 MG TABLET (FP) PO SCH (21:00)
[2018-11-16 21:16] LABS: ANISOCYTOSIS 3+; MACROCYTOSIS 1+; OVALOCYTE 1+; PLATELET ESTIMATE NORMAL
[2018-11-16] MEDS: IBUPROFEN 600 MG TABLET (FP) PO SCH (21:35)
[2018-11-17] MEDS ORDERED: ACETAMINOPHEN 325 MG TABLET (FP) PO SCH
[2018-11-17] MEDS: ACETAMINOPHEN 325 MG TABLET (FP) PO SCH ×4 (00:51→17:35)
[2018-11-17] MEDS: PIPERACILLIN/TAZOB 4.5 GM 4.5 GM in DEXTROSE 5%-WATER 100 ML IVPB SCH ×3 (02:00→17:35)
[2018-11-17] MEDS: IBUPROFEN 600 MG TABLET (FP) PO SCH ×4 (03:57→21:12)
[2018-11-17] MEDS ORDERED: PIPERACILLIN/TAZOBACTAM 4.5 GM VIAL IVPB ONE ×3 (03:58→17:21)
[2018-11-17] MEDS ORDERED: DEXTROSE 5%-WATER 100 ML IVPB ONE ×3 (03:58→17:21)
[2018-11-17] MEDS: LACTATED RINGERS SOLUTION 1,000 ML IV SCH (06:22)
[2018-11-17 08:02] LABS: BASO % 0.2 % (0-2.0); EOS % 1.8 % (0-4.5); HEMOGLOBIN 8.8 GM/dL (10.7-15.3); LYMPH % 16.9 % (8-40); MCHC 31.4 g/dl (32.0-36.0); MEAN CELL VOLUME 59.7 fl (80-96); MEAN PLT VOLUME 8.7 fl (7.5-11.1); MONO % 5.7 % (3.8-10.2); NEUT % 75.4 % (42.8-82.8); PLATELET COUNT 269 K/MM3 (134-434); WHITE BLOOD COUNT 7.8 K/mm3 (4.0-10.0)
[2018-11-17 08:05] LABS: ALBUMIN 2.8 g/dl (3.4-5.0); BILIRUBIN,TOTAL 5.9 mg/dL (0.2-1); BLOOD UREA NITROGEN 8.6 mg/dL (7-18); CREATININE 0.6 mg/dL (0.55-1.3); MAGNESIUM 2.2 mg/dL (1.8-2.4); POTASSIUM 3.2 mmol/L (3.5-5.1); TOT PROT 5.9 g/dl (6.4-8.2)
[2018-11-17 08:37] LABS: MCH 18.8 pg (25.7-33.7)
[2018-11-17] MEDS: POTASSIUM CHLORIDE TABS 20 MEQ TABLET.ER (FP) PO SCH ×2 (10:02→21:12)
--- NOTE | 2018-11-17 11:48 | PN ---
Progress Note, Physician History of Present Illness: stable pain at the operated site tolerating liquids - Current Medication List Current Medications: Active Medications Acetaminophen (Tylenol -) 650 mg PO Q6H HEMANTH Last Admin: 11/17/18 05:54 Dose: 650 mg Piperacillin Sod/Tazobactam (Sod 4.5 gm/ Dextrose) 100 mls @ 200 mls/hr IVPB Q8H-IV HEMANTH; Protocol Last Admin: 11/17/18 10:02 Dose: 200 mls/hr Ibuprofen (Motrin -) 600 mg PO Q6H HEMANTH Last Admin: 11/17/18 08:37 Dose: 600 mg Lactobacillus Acidophilus (Bacid -) 1 tab PO DAILY [facility]ANTH Ondansetron HCl (Zofran Injection) 4 mg IVPUSH Q6H PRN PRN Reason: NAUSEA AND/OR VOMITING Potassium Chloride (K-Dur -) 40 meq PO BID [facility]EMANTH Stop: 11/17/18 22:01 Last Admin: 11/17/18 10:02 Dose: 40 meq - Objective Vital Signs: Vital Signs Temperature 98.8 F 11/17/18 06:04 Pulse Rate 71 11/17/18 06:04 Respiratory Rate 18 11/17/18 06:04 Blood Pressure 132/78 11/17/18 06:04 O2 Sat by Pulse Oximetry (%) 98 11/16/18 21:00 Constitutional: Yes: No Distress, Calm Cardiovascular: Yes: Regular Rate and Rhythm Respiratory: Yes: Regular, CTA Bilaterally Gastrointestinal: Yes: Normal Bowel Sounds, Soft Musculoskeletal: Yes: WNL Extremities: Yes: WNL Neurological: Yes: Alert, Oriented Psychiatric: Yes: Alert, Oriented Labs: CBC, BMP 11/17/18 06:55 11/17/18 06:55 INR, PTT INR 1.23 (0.83-1.09) H 11/16/18 08:30 Assessment/Plan Problem List - Problems (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 - OBSTRUCTION OF BILE DUCT (2) Acute obstructive cholangitis Code(s): K83.09 - OTHER CHOLANGITIS (3) Calculus of gallbladder without cholecystitis with obstruction Code(s): K80.21 - CALCULUS OF GALLBLADDER W/O CHOLECYSTITIS WITH OBSTRUCTION (4) RUQ pain Code(s): R10.11 - RIGHT UPPER QUADRANT PAIN (5) Anemia Code(s): D64.9 - ANEMIA, UNSPECIFIED Qualifiers: Anemia type: iron deficiency Iron deficiency anemia type: unspecified iron deficiency Qualified Code(s): D50.9 - Iron deficiency anemia, unspecified 5 leukocytosis 6 hyperbiluribenimia plan continue zosyn monitor bilirubin rest as per the team
--- NOTE | 2018-11-17 11:51 | PN ---
Progress Note, Physician History of Present Illness: Patient with cholangitis from bile duct/ampullary stricture and cholelithiasis, s/p ERCP with sphincterotomy and purulent bile drainage. She had brief post- procedure pancreatitis, which improved. Now POD1 s/p laparoscopic cholecystectomy with findings of hydrops and chronic cholecystitis. She is seen ambulating in room and examined in bed, feeling better. She notes some pain in epigastric/RUQ area, which alternating nonnarcotics is managing well. She has passed gas but no BM yet. Voiding well. Labs today show normal wbc, H/H ok at 8.8 (had one unit blood postop yesterday) , decreased AST/ALT/alk phos, but rising bili; also low K+. Continuing Zosyn per ID. Tolerating diet. - Current Medication List Current Medications: Active Medications Acetaminophen (Tylenol -) 650 mg PO Q6H [facility] Last Admin: 11/17/18 05:54 Dose: 650 mg Piperacillin Sod/Tazobactam (Sod 4.5 gm/ Dextrose) 100 mls @ 200 mls/hr IVPB Q8H-IV HEMANTH; Protocol Last Admin: 11/17/18 10:02 Dose: 200 mls/hr Ibuprofen (Motrin -) 600 mg PO Q6H HEMANTH Last Admin: 11/17/18 08:37 Dose: 600 mg Lactobacillus Acidophilus (Bacid -) 1 tab PO DAILY [facility] Ondansetron HCl (Zofran Injection) 4 mg IVPUSH Q6H PRN PRN Reason: NAUSEA AND/OR VOMITING Potassium Chloride (K-Dur -) 40 meq PO BID [facility] Stop: 11/17/18 22:01 Last Admin: 11/17/18 10:02 Dose: 40 meq - Objective Vital Signs: Vital Signs Temperature 98.8 F 11/17/18 06:04 Pulse Rate 71 11/17/18 06:04 Respiratory Rate 18 11/17/18 06:04 Blood Pressure 132/78 11/17/18 06:04 O2 Sat by Pulse Oximetry (%) 98 11/16/18 21:00 Constitutional: Yes: Well Nourished, No Distress, Calm Eyes: Yes: EOM Intact, Sclera Icterus HENT: Yes: Atraumatic, Normocephalic Gastrointestinal: Yes: Soft, Distention (mild), Tenderness (mild RUQ, epigastric , incisional is mainly umbilical and subxiphoid), Tenderness, Epigastrium. No: Tenderness, Rebound Extremities: No: Cool, Cyanosis Integumentary: Yes: Incision (x4 dressed), Jaundice (mild). No: Rash Wound/Incision: Yes: Steri Strips (under dressings), Dressing Dry and Intact (x4 ). No: Dressing Removed Neurological: Yes: Alert, Oriented. No: Unsteady Gait Labs: CBC, BMP 11/17/18 06:55 11/17/18 06:55 CMP Sodium 138 mmol/L (136-145) 11/17/18 06:55 Potassium 3.2 mmol/L (3.5-5.1) L 11/17/18 06:55 Chloride 104 mmol/L (98-107) 11/17/18 06:55 Carbon Dioxide 25 mmol/L (21-32) 11/17/18 06:55 Anion Gap 9 MMOL/L (8-16) 11/17/18 06:55 BUN 8.6 mg/dL (7-18) 11/17/18 06:55 Creatinine 0.6 mg/dL (0.55-1.3) 11/17/18 06:55 Est GFR (CKD-EPI)AfAm 142.76 11/17/18 06:55 Est GFR (CKD-EPI)NonAf 123.17 11/17/18 06:55 Random Glucose 89 mg/dL (74-106) 11/17/18 06:55 Calcium 8.0 mg/dL (8.5-10.1) L 11/17/18 06:55 Phosphorus 3.0 mg/dL (2.5-4.9) 11/17/18 06:55 Magnesium 2.2 mg/dL (1.8-2.4) 11/17/18 06:55 Total Bilirubin 5.9 mg/dL (0.2-1) H 11/17/18 06:55 AST 149 U/L (15-37) H 11/17/18 06:55 ALT 295 U/L (13-61) H 11/17/18 06:55 Alkaline Phosphatase 205 U/L (45-117) H 11/17/18 06:55 Total Protein 5.9 g/dl (6.4-8.2) L 11/17/18 06:55 Albumin 2.8 g/dl (3.4-5.0) L 11/17/18 06:55 Total Amylase > 1300 U/L (25-115) H 11/15/18 06:46 Lipase 3682 U/L (73-393) H 11/16/18 06:45 Hb 7.0 - + 1 unit PRBC - 9.4 - 8.8 IV fluids now off, tolerating diet K low but mag, phos normal Problem List - Problems (1) Bile duct stricture Assessment/Plan: POD3 s/p ERCP by GI with sphincterotomy, evacuation of copious purulent bile no common duct stones identified post-ERCP pancreatitis resolved POD1 s/p laparoscopic cholecystectomy with findings of hydrops and chronic cholecystitis continue IV antibiotics per ID - will need PO antibiotics on discharge home per Dr. Mcdonald pt currently with mild pain, controlled with tylenol and ibuprofen d/c IV fluids, morphine tolerating low fat diet add bacid daily - encourage probiotic +/- yogurt daily at home while finishing abx OOB and ambulating well no postop fever, normal wbc incisional dressings c/d/i, tenderness appropriate replete lytes prn give KCl, bananas trend labs - LFTs down but bili rising if bilirubin does not decrease, may need repeat ERCP will discuss with Dr. Jeong/GI continues to require inpatient care at this time discussed with Dr. 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
[2018-11-17] MEDS: LACTOBACILLUS ACIDOPHILUS 1 TABLET PO SCH (12:40)
--- NOTE | 2018-11-17 17:41 | PN ---
Teaching Attending Note Name of Resident: Yon Crawford ATTENDING PHYSICIAN STATEMENT I saw and evaluated the patient. I reviewed the resident's note and discussed the case with the resident. I agree with the resident's findings and plan as documented. SUBJECTIVE: Patient has no complaints. Tolerating diet. OBJECTIVE: Vital Signs Period Temp Pulse Resp BP Sys/Raya Pulse Ox Last 24 Hr 97.9 F-99.2 F 66-89 14-18 122-148/61-89 97-100 HEART: S1S2, RRR LUNGS: Clear ABDOMEN: Obese, soft, (+) mild RUQ/epigastric tenderness, (+) mild distention, normal BS EXTREMITIES: No edema Laboratory Results - last 24 hr 11/13/18 11/13/18 11/16/18 17:25 20:10 19:15 WBC 12.8 H RBC 5.07 Hgb 9.4 L Hct 30.4 L D MCV 60.0 L MCH 18.5 L MCHC 30.8 L RDW 29.8 H Plt Count 275 MPV 8.5 Absolute Neuts (auto) 11.2 H Neutrophils % 87.3 H Lymphocytes % 7.1 L D Monocytes % 4.9 Eosinophils % 0.0 D Basophils % 0.7 Nucleated RBC % 0 Hypochromia 3+ Platelet Estimate Normal Platelet Comment No clumping noted Polychromasia 2+ Poikilocytosis 1+ Anisocytosis 3+ Microcytosis 2+ Macrocytosis 1+ Ovalocytes 1+ Sodium Potassium Chloride Carbon Dioxide Anion Gap BUN Creatinine Est GFR (CKD-EPI)AfAm Est GFR (CKD-EPI)NonAf Random Glucose Calcium Phosphorus Magnesium Total Bilirubin AST ALT Alkaline Phosphatase Total Protein Albumin C. trachomatis (FRANKY) Negative N. gonorrhoeae (FRANKY) Negative Blood Type B POSITIVE Antibody Screen Negative Crossmatch See Detail 11/16/18 11/17/18 11/17/18 19:15 06:55 06:55 WBC 7.8 RBC 4.70 Hgb 8.8 L Hct 28.0 L MCV 59.7 L MCH 18.8 L MCHC 31.4 L RDW 29.0 H Plt Count 269 MPV 8.7 Absolute Neuts (auto) 5.9 Neutrophils % 75.4 Lymphocytes % 16.9 D Monocytes % 5.7 Eosinophils % 1.8 D Basophils % 0.2 Nucleated RBC % 0 Hypochromia Platelet Estimate Platelet Comment Polychromasia Poikilocytosis Anisocytosis Microcytosis Macrocytosis Ovalocytes Sodium 141 138 Potassium 3.3 L 3.2 L Chloride 106 104 Carbon Dioxide 24 25 Anion Gap 10 9 BUN 8.8 8.6 Creatinine 0.7 0.6 Est GFR (CKD-EPI)AfAm 135.70 142.76 Est GFR (CKD-EPI)NonAf 117.08 123.17 Random Glucose 124 H 89 Calcium 8.1 L 8.0 L Phosphorus 3.2 3.0 Magnesium 2.8 H 2.2 Total Bilirubin 5.1 H D 5.9 H AST 215 H 149 H ALT 348 H 295 H Alkaline Phosphatase 208 H 205 H Total Protein 6.3 L 5.9 L Albumin 3.1 L 2.8 L C. trachomatis (FRANKY) N. gonorrhoeae (FRANKY) Blood Type Antibody Screen Crossmatch Current Medications Generic Name Dose Route Start Last Admin Trade Name Freq PRN Reason Stop Dose Admin Acetaminophen 650 mg 11/17/18 00:00 11/17/18 12:15 Tylenol - PO 650 mg Q6H HEMANTH Administration Piperacillin Sod/Tazobactam 100 mls @ 200 mls/hr 11/16/18 18:00 11/17/18 10: 02 Sod 4.5 gm/ Dextrose IVPB 200 mls/hr Q8H-IV HEMANTH Administration Protocol Ibuprofen 600 mg 11/16/18 21:00 11/17/18 15:01 Motrin - PO 600 mg Q6H HEMANTH Administration Lactobacillus Acidophilus 1 tab 11/17/18 12:30 11/17/18 12:40 Bacid - PO 1 tab DAILY HEMANTH Administration Ondansetron HCl 4 mg 11/16/18 17:27 Zofran Injection IVPUSH Q6H PRN NAUSEA AND/OR VOMITING Potassium Chloride 40 meq 11/17/18 10:00 11/17/18 10:02 K-Dur - PO 11/17/18 22:01 40 meq BID HEMANTH Administration ASSESSMENT AND PLAN: This is a 28 year old woman with a history of iron-deficiency anemia, pre- eclampsia who presented to the ED with chest and epigastric pain radiating to her back. 1. 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 Post-ERCP pancreatitis - Improved 3. Hypokalemia - Continue to replete potassium 4. Hypomagnesemia - Improved 5. Hypophosphatemia - Improved 6. Iron-deficiency anemia - Transfused 2 unit PRBCs this admission (11/14 and 11/16 in OR) - Continue ferrous sulfate 7. Obesity with BMI 31.1
--- NOTE | 2018-11-17 20:08 | PN ---
Progress Note (short form) - Note Progress Note: HPI: No acute events overnight. POD#1 today. Pt has mild pain in abdomen, but no nausea or vomiting. Pt post-transfusion of 1UPRBC Vital Signs Temperature 99.4 F 11/17/18 18:00 Pulse Rate 71 11/17/18 15:01 Respiratory Rate 18 11/17/18 18:00 Blood Pressure 143/92 11/17/18 18:00 O2 Sat by Pulse Oximetry (%) 98 11/17/18 09:00 PE: GEN: NAD, awake, alert, orientedx3 HEENT: NC/AT, JASE, MMM Neck: No JVD Lungs: CTA b/l without any wheezes or rales noted. On RA 99% CARD: RRR no murmurs appreciated ABD: Soft, nondistended, TTP RUQ and epigastric region equally, incisions noted dressed with surgical bandages EXT: No edema, well-perfused, no calf tenderness Skin: Jaundice today CBC, BMP 11/17/18 06:55 11/17/18 06:55 Hepatic Panel Total Bilirubin 5.9 mg/dL (0.2-1) H 11/17/18 06:55 AST 149 U/L (15-37) H 11/17/18 06:55 ALT 295 U/L (13-61) H 11/17/18 06:55 Alkaline Phosphatase 205 U/L (45-117) H 11/17/18 06:55 Albumin 2.8 g/dl (3.4-5.0) L 11/17/18 06:55 Active Medications Acetaminophen (Tylenol -) 650 mg PO Q6H HEMANTH Last Admin: 11/17/18 17:35 Dose: 650 mg Piperacillin Sod/Tazobactam (Sod 4.5 gm/ Dextrose) 100 mls @ 200 mls/hr IVPB Q8H-IV HEMANTH; Protocol Last Admin: 11/17/18 17:35 Dose: 200 mls/hr Ibuprofen (Motrin -) 600 mg PO Q6H HEMANTH Last Admin: 11/17/18 15:01 Dose: 600 mg Lactobacillus Acidophilus (Bacid -) 1 tab PO DAILY HEMANTH Last Admin: 11/17/18 12:40 Dose: 1 tab Ondansetron HCl (Zofran Injection) 4 mg IVPUSH Q6H PRN PRN Reason: NAUSEA AND/OR VOMITING Potassium Chloride (K-Dur -) 40 meq PO BID HEMANTH Stop: 11/17/18 22:01 Last Admin: 11/17/18 10:02 Dose: 40 meq Microbiology 11/13/18 23:10 Urine - Urine Clean Catch Urine Culture - Final Staphylococcus Aureus A/P Acute cholangitis 2/2 to ampulla of Vater stricture Post-ERCP pancreatitis Asymptomatic Bacteruria Anemia 2/2 to iron deficiency and blood loss HypoMg HypoPhosphatemia --Pt with uptrending bilirubin --Pain consistent with post-surgical pain and ongoing pancreatic inflammation --Appreciate design center consultant recommendations --NPO after midnight for possible further intervention --If bilirubin trends down may be possible to advance diet in AM pending GI eval --LR@150cc/hr to continue --Pain control per surgery --s/p 1UPRBC with increase in Hgb --Continue Zosyn q8h for cholangitis --Asymptomic bacteruria would not need to treated unless new symptoms develop FEN: Fluids: LR@150cc/hr Electrolyte abnormalities: Hypokalemia; repleted Kdur 40mEq BID x2 doses Nutrition: NPO for potential intervention PPX: DVT - SCDs only Dispo: Continue to monitor and trend bilirubin Case discussed with Dr. Yoko Crawford, DO - IM PGY-3
[2018-11-18] MEDS ORDERED: PIPERACILLIN/TAZOBACTAM 4.5 GM VIAL IVPB ONE ×3 (00:18→17:15)
[2018-11-18] MEDS ORDERED: DEXTROSE 5%-WATER 100 ML IVPB ONE ×3 (00:18→17:15)
[2018-11-18] MEDS: PIPERACILLIN/TAZOB 4.5 GM 4.5 GM in DEXTROSE 5%-WATER 100 ML IVPB SCH ×3 (01:09→17:56)
[2018-11-18] MEDS: IBUPROFEN 600 MG TABLET (FP) PO SCH ×4 (02:48→21:47)
[2018-11-18 08:11] LABS: HEMOGLOBIN 9.3 GM/dL (10.7-15.3); MCHC 30.9 g/dl (32.0-36.0); MEAN CELL VOLUME 60.5 fl (80-96); MEAN PLT VOLUME 8.8 fl (7.5-11.1); PLATELET COUNT 273 K/MM3 (134-434); RBC 4.96 M/mm3 (3.60-5.2); RDW 29.5 % (11.6-15.6); WHITE BLOOD COUNT 6.4 K/mm3 (4.0-10.0)
[2018-11-18 08:29] LABS: MCH 18.7 pg (25.7-33.7)
[2018-11-18 08:32] LABS: ALBUMIN 3.1 g/dl (3.4-5.0); BILIRUBIN,DIRECT 4.6 mg/dL (0.0-0.2); BILIRUBIN,TOTAL 5.5 mg/dL (0.2-1); BLOOD UREA NITROGEN 8.6 mg/dL (7-18); CALCIUM 8.5 mg/dL (8.5-10.1); CREATININE 0.6 mg/dL (0.55-1.3); MAGNESIUM 2.1 mg/dL (1.8-2.4); POTASSIUM 4.1 mmol/L (3.5-5.1); TOT PROT 6.8 g/dl (6.4-8.2)
[2018-11-18] MEDS: LACTOBACILLUS ACIDOPHILUS 1 TABLET PO SCH (09:28)
--- NOTE | 2018-11-18 09:38 | PN ---
Progress Note (short form) - Note Progress Note: HPI: No acute events overnight. POD#2 today. Pt reports feeling much improved with her pain with some mild residual pain in mid-epigastric region. Otherwise denies nausea, vomiting, fever/chills. Pt did not eat and does not feel hungry Vital Signs Temperature 99.4 F 11/17/18 18:00 Pulse Rate 71 11/17/18 15:01 Respiratory Rate 18 11/17/18 18:00 Blood Pressure 143/92 11/17/18 18:00 O2 Sat by Pulse Oximetry (%) 98 11/17/18 09:00 PE: GEN: NAD, awake, alert, orientedx3 HEENT: NC/AT, JASE, MMM Neck: No JVD Lungs: CTA b/l without any wheezes or rales noted. On RA 99% CARD: RRR no murmurs appreciated ABD: Soft, nondistended, TTP midepigastric region (mild), incisions noted dressed without drainage EXT: No edema, well-perfused, no calf tenderness Skin: Jaundice today CBC, BMP 11/18/18 07:10 11/18/18 07:10 Hepatic Panel Total Bilirubin 5.5 mg/dL (0.2-1) H 11/18/18 07:10 Direct Bilirubin 4.6 mg/dL (0.0-0.2) H 11/18/18 07:10 AST 98 U/L (15-37) H 11/18/18 07:10 ALT 260 U/L (13-61) H 11/18/18 07:10 Alkaline Phosphatase 240 U/L (45-117) H 11/18/18 07:10 Albumin 3.1 g/dl (3.4-5.0) L 11/18/18 07:10 Active Medications Piperacillin Sod/Tazobactam (Sod 4.5 gm/ Dextrose) 100 mls @ 200 mls/hr IVPB Q8H-IV HEMANTH; Protocol Last Admin: 11/18/18 09:28 Dose: 200 mls/hr Ibuprofen (Motrin -) 600 mg PO Q6H [facility]EMANTH Last Admin: 11/18/18 09:23 Dose: Not Given Lactobacillus Acidophilus (Bacid -) 1 tab PO DAILY [facility]EMANTH Last Admin: 11/18/18 09:28 Dose: 1 tab Ondansetron HCl (Zofran Injection) 4 mg IVPUSH Q6H PRN PRN Reason: NAUSEA AND/OR VOMITING Microbiology 11/13/18 23:10 Urine - Urine Clean Catch Urine Culture - Final Staphylococcus Aureus A/P Acute cholangitis 2/2 to ampulla of Vater stricture Post-ERCP pancreatitis Asymptomatic Bacteruria Anemia 2/2 to iron deficiency and blood loss HypoMg HypoPhosphatemia --Pt's TB mildly decreased --ERCP scheduled with Dr. Jeong at 1pm today --NPO until procedure --Appreciate sec reporting consultant recommendations --LR@150cc/hr to continue --s/p 1UPRBC with increase in Hgb --Continue Zosyn q8h for cholangitis --Asymptomic bacteruria would not need to treated unless new symptoms develop FEN: Fluids: LR@150cc/hr Electrolyte abnormalities: None Nutrition: NPO for intervention PPX: DVT - SCDs only Dispo: ERCP with Dr. Jeong Case discussed with Dr. Fabien Crawford, - IM PGY-3 <Yon Crawford - Last Filed: 11/18/18 09:38> - Note Progress Note: Attending Addendum I have seen and examined the indicated patient independently/along with the resident team. I have personally verified all luis exam findings and historical components. I have personally interpreted all diagnostics indicated per todays orders and reviewed interpretation of indicated subspecialty services. This patient meets a high level of medical complexity and warrants inpatient admission to avoid decompensation and worsening of the indicated illness. 60 minutes have been spent in the completion of this admission. S: Agree with historical findings as outlined in resident documentation regarding history of present illness. Bili is slightly improved to 5.5 but marginal with direct of 4.6. She has increased Alk phos from 205 to 240. Discussed with subspecialty services; HIDA vs. ERCP today. Pain stable and no events reported to me from overnight. 10 system ROS completed and is negative aside from indicated issues in the resident/attending history of present illness and full documentation. Past Medical History and Past Surgical Histories reviewed in depth; per resident note Social history is reviewed; per resident note; Complete family history is reviewed with patient and is non-pertinent aside from the indicated issues outlined above. No sudden history of cardiac . O: All vital signs reviewed per ER records and are as per EMR NAD, AAO, Resting in bed; mentating at baseline per prior encounters NC AT EOMI PERRLA Neck supple, trachea midline, no sidney LN RRR s1/2 Lungs CTAB, w/ sym expansion Moderate diffuse tenderness, ND, +BS No skin breakdown or rashes noted CN2-12 wnl, no new focal deficits noted Muscle tone normal, no deficits in motor function or strength noted Normal mood, appropriate behavior, average insight Reviewed prior operative reports and diagnostics. A/P: Patient seen, examined, and discussed in depth with resident team. Problem list reviewed per resident note and agree with their discussion aside from as supplemented by myself below. Problems include: -Acute Cholangitis (ERCP vs. HIDA likely later today; further discussion with GI , abx per ID, clinically stable now. Pending further discussion with subspecialty services. 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 Full Code <Enrique Conn - Last Filed: 11/18/18 10:59>
--- NOTE | 2018-11-18 11:06 | PN ---
Progress Note, Physician - Current Medication List Current Medications: Active Medications Piperacillin Sod/Tazobactam (Sod 4.5 gm/ Dextrose) 100 mls @ 200 mls/hr IVPB Q8H-IV HEMANTH; Protocol Last Admin: 11/18/18 09:28 Dose: 200 mls/hr Ibuprofen (Motrin -) 600 mg PO Q6H HEMANTH Last Admin: 11/18/18 09:23 Dose: Not Given Lactobacillus Acidophilus (Bacid -) 1 tab PO DAILY [facility]EMANTH Last Admin: 11/18/18 09:28 Dose: 1 tab Ondansetron HCl (Zofran Injection) 4 mg IVPUSH Q6H PRN PRN Reason: NAUSEA AND/OR VOMITING - Objective Vital Signs: Vital Signs Temperature 98.4 F 11/18/18 06:00 Pulse Rate 71 11/18/18 06:00 Respiratory Rate 18 11/18/18 06:00 Blood Pressure 122/71 11/18/18 06:00 O2 Sat by Pulse Oximetry (%) 98 11/17/18 21:00 Labs: CBC, BMP 11/18/18 07:10 11/18/18 07:10 INR, PTT INR 1.23 (0.83-1.09) H 11/16/18 08:30
--- NOTE | 2018-11-18 12:11 | PN ---
Progress Note, Physician History of Present Illness: feels better no new issues bili still high - Current Medication List Current Medications: Active Medications Piperacillin Sod/Tazobactam (Sod 4.5 gm/ Dextrose) 100 mls @ 200 mls/hr IVPB Q8H-IV [facility]; Protocol Last Admin: 11/18/18 09:28 Dose: 200 mls/hr Ibuprofen (Motrin -) 600 mg PO Q6H [facility] Last Admin: 11/18/18 09:23 Dose: Not Given Lactobacillus Acidophilus (Bacid -) 1 tab PO DAILY [facility] Last Admin: 11/18/18 09:28 Dose: 1 tab Ondansetron HCl (Zofran Injection) 4 mg IVPUSH Q6H PRN PRN Reason: NAUSEA AND/OR VOMITING - Objective Vital Signs: Vital Signs Temperature 98.4 F 11/18/18 06:00 Pulse Rate 71 11/18/18 06:00 Respiratory Rate 18 11/18/18 06:00 Blood Pressure 122/71 11/18/18 06:00 O2 Sat by Pulse Oximetry (%) 98 11/17/18 21:00 Constitutional: Yes: No Distress, Calm Cardiovascular: Yes: Regular Rate and Rhythm Respiratory: Yes: Regular, CTA Bilaterally Gastrointestinal: Yes: Normal Bowel Sounds, Soft Musculoskeletal: Yes: WNL Extremities: Yes: WNL Wound/Incision: Yes: Clean/Dry Neurological: Yes: Alert, Oriented Psychiatric: Yes: Alert, Oriented Labs: CBC, BMP 11/18/18 07:10 11/18/18 07:10 INR, PTT INR 1.23 (0.83-1.09) H 11/16/18 08:30 Assessment/Plan Problem List - Problems (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 - OBSTRUCTION OF BILE DUCT (2) Acute obstructive cholangitis Code(s): K83.09 - OTHER CHOLANGITIS (3) Calculus of gallbladder without cholecystitis with obstruction Code(s): K80.21 - CALCULUS OF GALLBLADDER W/O CHOLECYSTITIS WITH OBSTRUCTION (4) RUQ pain Code(s): R10.11 - RIGHT UPPER QUADRANT PAIN (5) Anemia Code(s): D64.9 - ANEMIA, UNSPECIFIED Qualifiers: Anemia type: iron deficiency Iron deficiency anemia type: unspecified iron deficiency Qualified Code(s): D50.9 - Iron deficiency anemia, unspecified 5 leukocytosis 6 hyperbiluribenimia plan might switch to oral monitor bilirubin rest as per the team will d/w the team
[2018-11-18] MEDS ORDERED: MIDAZOLAM HCL 2 MG/2 ML SINGLE DOSE VIAL ONE (12:40)
[2018-11-18] MEDS ORDERED: PROPOFOL 20 ML ONE ×2 (12:40)
[2018-11-18] MEDS ORDERED: ROCURONIUM BROMIDE 50 MG/5 ML VIAL ONE (12:40)
[2018-11-18] MEDS ORDERED: NEOSTIGMINE METHYLSULFATE 0.5 MG/ML - 10 ML MDV ONE (12:41)
[2018-11-18] MEDS ORDERED: GLYCOPYRROLATE 0.2 MG/1 ML VIAL ONE ×4 (12:41)
[2018-11-18] MEDS ORDERED: fentaNYL CITRATE 250 MCG/5 ML VIAL ONE (12:41)
[2018-11-18] MEDS ORDERED: IOVERSOL 300 MG/ML ML IV ONE (13:45)
--- NOTE | 2018-11-18 14:33 | PN ---
Progress Note (short form) - Note Progress Note: ERCP performed today: Site of prior sphincterotomy identified. Marked edema around the opening but some bile still exiting. CBD cannulated, opacified after balloon used to occlude the sphincterotomy opening. No bile duct injury appreciated. No leak seen from cystic duct remnant. New stone about 10-12 mm diameter found in distal CBD. The previous sphincterotomy was extended slightly and 2 balloon catheters used in an attempt to pull the stone through the sphincterotomy. Unsuccessful both times. A 7 Fr 7 cm double pigtail stent then placed to ensure biliary drainage. I would wait at least 3 weeks but no more than 3 months to remove this stent and attempt again to remove the stone. It should be easier once the swelling has resolved. If the stone still cannot be removed through the sphincterotomy site then mechanical lithotripsy can be used to break the stone into fragments. Problem List - Problems (1) Cholelithiasis Code(s): K80.20 - CALCULUS OF GALLBLADDER W/O CHOLECYSTITIS W/O OBSTRUCTION Qualifiers: Cholelithiasis location: gallbladder Cholecystitis presence: with cholecystitis Cholecystitis acuity: acute Biliary obstruction: without biliary obstruction Qualified Code(s): K80.00 - Calculus of gallbladder with acute cholecystitis without obstruction
--- NOTE | 2018-11-18 16:43 | PATH ---
Surgical Pathology Report Patient Name: IVA PERERA [facility]. Rec. #: [id number] /Age/Gender: 1990 (Age: 28) / F Account: [id number] Location: EMERGENCY ROOM Taken: 11/16/2018 Received: 11/17/2018 Reported: 11/18/2018 Physicians: Hero Escudero M.D. Specimen(s) Received GALLBLADDER Clinical History Cholelithiasis, cholangitis/bile duct stricture Final Diagnosis GALLBLADDER, CHOLECYSTECTOMY: ACUTE AND CHRONIC CHOLECYSTITIS. CHOLELITHIASIS. Electronically Signed Paco Franks M.D. Gross Description Received in formalin, labeled "gallbladder," is a 10 x 2.0 x 2.0 cm. focally disrupted gallbladder with a 0.2 cm. in length portion of cystic duct attached. The outer surface varies from smooth to shaggy. The lumen contains multiple yellow stones, ranging from 0.3 to 0.8cm in greatest dimension. The mucosa is focally eroded and hemorrhagic. The wall of the gallbladder measures 0.4cm. in thickness. Economic Development Manager sections are submitted in one cassette. IRENA/11/17/2018 jenny/11/17/2018
[2018-11-19] MEDS ORDERED: PIPERACILLIN/TAZOBACTAM 4.5 GM VIAL IVPB ONE ×3 (01:07→17:08)
[2018-11-19] MEDS ORDERED: DEXTROSE 5%-WATER 100 ML IVPB ONE ×3 (01:08→17:09)
[2018-11-19] MEDS: PIPERACILLIN/TAZOB 4.5 GM 4.5 GM in DEXTROSE 5%-WATER 100 ML IVPB SCH ×3 (01:28→17:28)
[2018-11-19] MEDS: IBUPROFEN 600 MG TABLET (FP) PO SCH ×3 (03:11→16:37)
[2018-11-19 07:31] LABS: BILIRUBIN,DIRECT 2.5 mg/dL (0.0-0.2)
[2018-11-19 07:36] LABS: HEMATOCRIT 33.1 % (32.4-45.2); HEMOGLOBIN 10.3 GM/dL (10.7-15.3); MEAN PLT VOLUME 8.7 fl (7.5-11.1); PLATELET COUNT 308 K/MM3 (134-434); RBC 5.43 M/mm3 (3.60-5.2); RDW 30.7 % (11.6-15.6); WHITE BLOOD COUNT 6.9 K/mm3 (4.0-10.0)
[2018-11-19 07:38] LABS: ALBUMIN 3.5 g/dl (3.4-5.0); BILIRUBIN,TOTAL 3.3 mg/dL (0.2-1); BLOOD UREA NITROGEN 11.8 mg/dL (7-18); CALCIUM 9.1 mg/dL (8.5-10.1); CREATININE 0.7 mg/dL (0.55-1.3); MCH 18.9 pg (25.7-33.7); PHOSPHOROUS 3.8 mg/dL (2.5-4.9); POTASSIUM 3.6 mmol/L (3.5-5.1); TOT PROT 7.8 g/dl (6.4-8.2)
[2018-11-19] MEDS: LACTOBACILLUS ACIDOPHILUS 1 TABLET PO SCH (10:20)
--- NOTE | 2018-11-19 13:14 | PN ---
Progress Note, Physician History of Present Illness: stable repeat endoscopy done no complaints - Current Medication List Current Medications: Active Medications Piperacillin Sod/Tazobactam (Sod 4.5 gm/ Dextrose) 100 mls @ 200 mls/hr IVPB Q8H-IV [facility]AN[facility]; Protocol Last Admin: 11/19/18 10:20 Dose: 200 mls/hr Ibuprofen (Motrin -) 600 mg PO Q6H [facility]ANTH Last Admin: 11/19/18 10:18 Dose: Not Given Lactobacillus Acidophilus (Bacid -) 1 tab PO DAILY [facility]ANTH Last Admin: 11/19/18 10:20 Dose: 1 tab Ondansetron HCl (Zofran Injection) 4 mg IVPUSH Q6H PRN PRN Reason: NAUSEA AND/OR VOMITING - Objective Vital Signs: Vital Signs Temperature 98.4 F 11/19/18 06:00 Pulse Rate 66 11/19/18 06:00 Respiratory Rate 18 11/19/18 06:00 Blood Pressure 133/71 11/19/18 06:00 O2 Sat by Pulse Oximetry (%) 100 11/18/18 21:00 Constitutional: Yes: No Distress, Calm Cardiovascular: Yes: Regular Rate and Rhythm Respiratory: Yes: Regular, CTA Bilaterally Gastrointestinal: Yes: Normal Bowel Sounds, Soft Musculoskeletal: Yes: WNL Extremities: Yes: WNL Neurological: Yes: Alert, Oriented Psychiatric: Yes: Alert, Oriented Labs: CBC, BMP 11/19/18 06:30 11/19/18 06:30 INR, PTT INR 1.23 (0.83-1.09) H 11/16/18 08:30 Assessment/Plan Problem List - Problems (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 - OBSTRUCTION OF BILE DUCT (2) Acute obstructive cholangitis Code(s): K83.09 - OTHER CHOLANGITIS (3) Calculus of gallbladder without cholecystitis with obstruction Code(s): K80.21 - CALCULUS OF GALLBLADDER W/O CHOLECYSTITIS WITH OBSTRUCTION (4) RUQ pain Code(s): R10.11 - RIGHT UPPER QUADRANT PAIN (5) Anemia Code(s): D64.9 - ANEMIA, UNSPECIFIED Qualifiers: Anemia type: iron deficiency Iron deficiency anemia type: unspecified iron deficiency Qualified Code(s): D50.9 - Iron deficiency anemia, unspecified 5 leukocytosis 6 hyperbiluribenimia plan continue abx monitor bili
[2018-11-19 13:22] VITALS: BMI 31.0
--- NOTE | 2018-11-19 14:02 | PN ---
Progress Note (short form) - Note Progress Note: HPI: No acute events overnight. ERCP performed yesterday. Pt tolerating food today without nausea or vomiting. Not requiring pain medications with resolving pain. Vital Signs Temperature 99.4 F 11/17/18 18:00 Pulse Rate 71 11/17/18 15:01 Respiratory Rate 18 11/17/18 18:00 Blood Pressure 143/92 11/17/18 18:00 O2 Sat by Pulse Oximetry (%) 98 11/17/18 09:00 PE: GEN: NAD, awake, alert, orientedx3 HEENT: NC/AT, JASE, MMM Neck: No JVD Lungs: CTA b/l without any wheezes or rales noted. On RA 99% CARD: RRR no murmurs appreciated ABD: Soft, nondistended, TTP midepigastric region resolving, incisions noted dressed without drainage EXT: No edema, well-perfused, no calf tenderness Skin: No jaundice today CBC, BMP 11/18/18 07:10 11/18/18 07:10 Hepatic Panel Total Bilirubin 5.5 mg/dL (0.2-1) H 11/18/18 07:10 Direct Bilirubin 4.6 mg/dL (0.0-0.2) H 11/18/18 07:10 AST 98 U/L (15-37) H 11/18/18 07:10 ALT 260 U/L (13-61) H 11/18/18 07:10 Alkaline Phosphatase 240 U/L (45-117) H 11/18/18 07:10 Albumin 3.1 g/dl (3.4-5.0) L 11/18/18 07:10 Active Medications Piperacillin Sod/Tazobactam (Sod 4.5 gm/ Dextrose) 100 mls @ 200 mls/hr IVPB Q8H-IV H[facility]AN[facility]; Protocol Last Admin: 11/19/18 10:20 Dose: 200 mls/hr Ibuprofen (Motrin -) 600 mg PO Q6H HEMANTH Last Admin: 11/19/18 10:18 Dose: Not Given Lactobacillus Acidophilus (Bacid -) 1 tab PO DAILY HEMANTH Last Admin: 11/19/18 10:20 Dose: 1 tab Ondansetron HCl (Zofran Injection) 4 mg IVPUSH Q6H PRN PRN Reason: NAUSEA AND/OR VOMITING Microbiology 11/13/18 23:10 Urine - Urine Clean Catch Urine Culture - Final Staphylococcus Aureus A/P 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 Jeong: --10-12mm stone with difficult to expel; extension of sphincterotomy; stent placement with interval f/u 3weeks - 3 months for stent retrieval --Advance diet --Appreciate hospice consultant recommendations --Discontinue IVF due to tolerating PO --Continue Zosyn q8h for cholangitis; switch to PO with ID discretion tomorrow --Asymptomic bacteruria would not need to treated unless new symptoms develop FEN: Fluids: Discontinued; tolerating PO Electrolyte abnormalities: None Nutrition: Regular diet PPX: DVT - SCDs only Dispo: Pending continued resolution of TBili tomorrow pt can be discharged if GI in agreement Case discussed with Dr. Fabien Crawford, DO - IM PGY-3 <Yon Crawford - Last Filed: 11/19/18 14:03> - Note Progress Note: Seen and examined; independently reviewed all VS, labs, and diagnstics. Verified all historical and luis exam findings. No new complaints, stable NAD, AAO, resting in bed RRR s1/2 no mgr Mild to mod tender without rebound or guarding, +BS, ND CN2-12 wnl, no fnd Normal mood, appropriate behavior A/P: Agree with problem list per resident note. 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
[2018-11-19] MEDS ORDERED: IBUPROFEN 400 MG TABLET (FP) PO PRN (18:03)
--- NOTE | 2018-11-19 18:20 | PN ---
Progress Note, Physician History of Present Illness: Patient with cholangitis from bile duct/ampullary stricture and cholelithiasis, s/p ERCP with sphincterotomy and purulent bile drainage. She had brief post- procedure pancreatitis, which improved. Now POD3 s/p laparoscopic cholecystectomy with findings of hydrops and chronic cholecystitis as well. Postop, she had rising bilirubin, and had repeat ERCP yesterday, with findings of new CBD stone, which could not be extracted. Biliary stent was placed. Bili is down to 3.3 today, while LFTs are sideways. Lipase 700 today, likely further down from previous (>3000 day of surgery). She is seen and examined in bed, feeling better. She denies pain and has been refusing pain medications. She has passed gas, had a small BM yesterday. Voiding and ambulating. H/H 9.3 today, stable. She is tolerating diet, but eating lightly. Continuing Zosyn per ID. is present at bedside. - Current Medication List Current Medications: Active Medications Piperacillin Sod/Tazobactam (Sod 4.5 gm/ Dextrose) 100 mls @ 200 mls/hr IVPB Q8H-IV HEMANTH; Protocol Last Admin: 11/19/18 17:28 Dose: 200 mls/hr Ibuprofen (Motrin -) 400 mg PO Q6H PRN PRN Reason: PAIN LEVEL 6-10 Lactobacillus Acidophilus (Bacid -) 1 tab PO DAILY HEMANTH Last Admin: 11/19/18 10:20 Dose: 1 tab Ondansetron HCl (Zofran Injection) 4 mg IVPUSH Q6H PRN PRN Reason: NAUSEA AND/OR VOMITING - Objective Vital Signs: Vital Signs Temperature 98.9 F 11/19/18 14:53 Pulse Rate 59 L 11/19/18 14:53 Respiratory Rate 18 11/19/18 14:53 Blood Pressure 118/72 11/19/18 14:53 O2 Sat by Pulse Oximetry (%) 100 11/19/18 09:00 Constitutional: Yes: Well Nourished, No Distress, Calm Eyes: Yes: Conjunctiva Clear, EOM Intact. No: Sclera Icterus (minimal if any left) HENT: Yes: Atraumatic, Normocephalic Gastrointestinal: Yes: Soft. No: Distention, Tenderness (minimal incisional at umbilical/subxiphoid only - no sidney tenderness), Tenderness, Epigastrium Extremities: No: Cool, Cyanosis Integumentary: Yes: Incision (x4 dressed). No: Jaundice (fading - minimal now if any), Rash Wound/Incision: Yes: Steri Strips (at 4 sites, few with small dried bloodspots underneath, all intact), Dressing Dry and Intact (x4), Dressing Removed (x4 - steri's intact) Neurological: Yes: Alert, Oriented Labs: CBC, BMP 11/19/18 06:30 11/19/18 06:30 CMP Sodium 137 mmol/L (136-145) 11/19/18 06:30 Potassium 3.6 mmol/L (3.5-5.1) 11/19/18 06:30 Chloride 103 mmol/L (98-107) 11/19/18 06:30 Carbon Dioxide 26 mmol/L (21-32) 11/19/18 06:30 Anion Gap 8 MMOL/L (8-16) 11/19/18 06:30 BUN 11.8 mg/dL (7-18) 11/19/18 06:30 Creatinine 0.7 mg/dL (0.55-1.3) 11/19/18 06:30 Est GFR (CKD-EPI)AfAm 135.70 11/19/18 06:30 Est GFR (CKD-EPI)NonAf 117.08 11/19/18 06:30 Random Glucose 96 mg/dL (74-106) 11/19/18 06:30 Calcium 9.1 mg/dL (8.5-10.1) 11/19/18 06:30 Phosphorus 3.8 mg/dL (2.5-4.9) 11/19/18 06:30 Magnesium 2.0 mg/dL (1.8-2.4) 11/19/18 06:30 Iron 11 ug/dL (50-175) L 11/13/18 17:25 TIBC 463 ug/dL (250-450) H 11/13/18 17:25 Iron Saturation 2 % (17.5-39) L 11/13/18 17:25 Unsaturated IBC 452 ug/dL (200-275) H 11/13/18 17:25 Transferrin 375 mg/dL (200-370) H 11/14/18 01:03 Ferritin 10.0 ng/ml (8-388) 11/15/18 06:46 Total Bilirubin 3.3 mg/dL (0.2-1) H D 11/19/18 06:30 Direct Bilirubin 2.5 mg/dL (0.0-0.2) H 11/19/18 06:30 AST 116 U/L (15-37) H 11/19/18 06:30 ALT 261 U/L (13-61) H 11/19/18 06:30 Alkaline Phosphatase 258 U/L (45-117) H 11/19/18 06:30 Troponin I < 0.02 ng/ml (0.00-0.05) 11/14/18 01:30 Total Protein 7.8 g/dl (6.4-8.2) 11/19/18 06:30 Albumin 3.5 g/dl (3.4-5.0) 11/19/18 06:30 Total Amylase > 1300 U/L (25-115) H 11/15/18 06:46 Lipase 704 U/L (73-393) H 11/19/18 06:30 Vitamin B12 694 pg/ml (193-986) 11/15/18 06:46 Serum Folate 19 ng/mL (3.1-17.5) H 11/13/18 17:25 Beta HCG, Quant < 1.0 mIU/ml 11/13/18 17:25 Serum , Qual Negative 11/13/18 19:37 Problem List - Problems (1) Bile duct stricture Assessment/Plan: POD5 s/p ERCP by GI with sphincterotomy, evacuation of copious purulent bile no common duct stones identified post-ERCP pancreatitis resolved POD3 s/p laparoscopic cholecystectomy with findings of hydrops and chronic cholecystitis continue IV antibiotics per ID - will need PO antibiotics on discharge home per Dr. Mcdonald POD1 s/p repeat ERCP with stenting, widening of sphincterotomy - cbd stone could not be extracted no bile duct injury or leak identified pt currently with no pain or tenderness change ibuprofen to PRN - tylenol d/c'd - trend labs, monitor LFTs, lipase IV fluids off, tolerating diet on bacid daily - encourage probiotic +/- yogurt daily at home while finishing abx OOB/ambulating no fevers, normal wbc incisions c/d/i with steris, dressings removed bili coming back down LFTs sideways Dr. Jeong/GI following - will need to f/u in 1-2 months for stent removal and to ensure bile duct clear of stone continues to require inpatient care at this time if bili down again tomorrow, could change to PO antibiotics and d/c home instructions in d/c plan f/u with surgery in 2 weeks needs referral to primary care clinic Code(s): K83.1 - OBSTRUCTION OF BILE DUCT (2) Bile duct calculus with obstruction Assessment/Plan: see above Code(s): K80.51 - CALCULUS OF BILE DUCT W/O CHOLANGITIS OR CHOLECYST W OBST Qualifiers: Cholecystitis presence: without cholecystitis Qualified Code(s): K80.51 - Calculus of bile duct without cholangitis or cholecystitis with obstruction (3) Acute obstructive cholangitis Assessment/Plan: see above Code(s): K83.09 - OTHER CHOLANGITIS (4) Calculus of gallbladder without cholecystitis with obstruction Assessment/Plan: see above Code(s): K80.21 - CALCULUS OF GALLBLADDER W/O CHOLECYSTITIS WITH OBSTRUCTION (5) RUQ pain Assessment/Plan: resolved Code(s): R10.11 - RIGHT UPPER QUADRANT PAIN (6) Anemia Assessment/Plan: anemia most likely chronic - reports history of same 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 Clifton as outpatient Code(s): D64.9 - ANEMIA, UNSPECIFIED Qualifiers: Anemia type: iron deficiency Iron deficiency anemia type: unspecified iron deficiency Qualified Code(s): D50.9 - Iron deficiency anemia, unspecified
[2018-11-20] MEDS ORDERED: DEXTROSE 5%-WATER 100 ML IVPB ONE ×2 (01:03→09:03)
[2018-11-20] MEDS ORDERED: PIPERACILLIN/TAZOBACTAM 4.5 GM VIAL IVPB ONE ×2 (01:03→09:03)
[2018-11-20] MEDS: PIPERACILLIN/TAZOB 4.5 GM 4.5 GM in DEXTROSE 5%-WATER 100 ML IVPB SCH ×2 (01:25→09:22)
[2018-11-20 08:19] LABS: HEMATOCRIT 32.7 % (32.4-45.2); MCHC 30.7 g/dl (32.0-36.0); MEAN CELL VOLUME 62.1 fl (80-96); MEAN PLT VOLUME 8.8 fl (7.5-11.1); PLATELET COUNT 317 K/MM3 (134-434); RBC 5.27 M/mm3 (3.60-5.2); RDW 31.4 % (11.6-15.6); WHITE BLOOD COUNT 6.6 K/mm3 (4.0-10.0)
[2018-11-20 08:29] LABS: MCH 19.1 pg (25.7-33.7)
[2018-11-20 08:51] LABS: ALBUMIN 3.5 g/dl (3.4-5.0); BILIRUBIN,TOTAL 2.1 mg/dL (0.2-1); BLOOD UREA NITROGEN 12.4 mg/dL (7-18); CALCIUM 9.3 mg/dL (8.5-10.1); CREATININE 0.7 mg/dL (0.55-1.3); POTASSIUM 3.8 mmol/L (3.5-5.1); TOT PROT 7.5 g/dl (6.4-8.2)
[2018-11-20] MEDS: LACTOBACILLUS ACIDOPHILUS 1 TABLET PO SCH (09:22)
[2018-11-20 09:27] VITALS: BP 126/77; PULSE 70; TEMP 99
--- NOTE | 2018-11-20 11:55 | PN ---
Progress Note, Physician History of Present Illness: stable no new issues - Current Medication List Current Medications: Active Medications Piperacillin Sod/Tazobactam (Sod 4.5 gm/ Dextrose) 100 mls @ 200 mls/hr IVPB Q8H-IV [facility]AN[facility]; Protocol Last Admin: 11/20/18 09:22 Dose: 200 mls/hr Ibuprofen (Motrin -) 400 mg PO Q6H PRN PRN Reason: PAIN LEVEL 6-10 Lactobacillus Acidophilus (Bacid -) 1 tab PO DAILY HEMANTH Last Admin: 11/20/18 09:22 Dose: 1 tab - Objective Vital Signs: Vital Signs Temperature 99 F 11/20/18 09:27 Pulse Rate 70 11/20/18 09:27 Respiratory Rate 16 11/20/18 09:27 Blood Pressure 126/77 11/20/18 09:27 O2 Sat by Pulse Oximetry (%) 98 11/19/18 21:00 Constitutional: Yes: No Distress, Calm Cardiovascular: Yes: S1, S2 Respiratory: Yes: Regular, CTA Bilaterally Gastrointestinal: Yes: Normal Bowel Sounds, Soft Musculoskeletal: Yes: WNL Extremities: Yes: WNL Neurological: Yes: Alert, Oriented Psychiatric: Yes: Alert, Oriented Labs: CBC, BMP 11/20/18 07:50 11/20/18 07:50 INR, PTT INR 1.23 (0.83-1.09) H 11/16/18 08:30 Assessment/Plan Problem List - Problems (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 - OBSTRUCTION OF BILE DUCT (2) Acute obstructive cholangitis Code(s): K83.09 - OTHER CHOLANGITIS (3) Calculus of gallbladder without cholecystitis with obstruction Code(s): K80.21 - CALCULUS OF GALLBLADDER W/O CHOLECYSTITIS WITH OBSTRUCTION (4) RUQ pain Code(s): R10.11 - RIGHT UPPER QUADRANT PAIN (5) Anemia Code(s): D64.9 - ANEMIA, UNSPECIFIED Qualifiers: Anemia type: iron deficiency Iron deficiency anemia type: unspecified iron deficiency Qualified Code(s): D50.9 - Iron deficiency anemia, unspecified 5 leukocytosis 6 hyperbiluribenimia plan can be switched to oral abx augmentin 875 mg po bid for 8 more days rest as per the team and gi
--- NOTE | 2018-11-20 12:13 | PN ---
Progress Note, Physician History of Present Illness: Patient with cholangitis from bile duct/ampullary stricture and cholelithiasis, s/p ERCP with sphincterotomy and purulent bile drainage. She had brief post- procedure pancreatitis, which improved. Now POD4 s/p laparoscopic cholecystectomy with findings of hydrops and chronic cholecystitis as well. Postop, she had rising bilirubin, and had repeat ERCP, with findings of new CBD stone, which could not be extracted. Biliary stent was placed. Bili is down to 2.1 today, while LFTs and lipase are slightly up/sideways. She is seen and examined sitting up on edge of bed for lunch. She denies pain and is not using pain medications. Voiding and ambulating, had BM 2d ago, is passing gas. H/H 10 today, stable. She is tolerating diet. On Zosyn per ID. - Current Medication List Current Medications: Active Medications Piperacillin Sod/Tazobactam (Sod 4.5 gm/ Dextrose) 100 mls @ 200 mls/hr IVPB Q8H-IV H[facility]AN[facility]; Protocol Last Admin: 11/20/18 09:22 Dose: 200 mls/hr Ibuprofen (Motrin -) 400 mg PO Q6H PRN PRN Reason: PAIN LEVEL 6-10 Lactobacillus Acidophilus (Bacid -) 1 tab PO DAILY [facility]ANTH Last Admin: 11/20/18 09:22 Dose: 1 tab - Objective Vital Signs: Vital Signs Temperature 99 F 11/20/18 09:27 Pulse Rate 70 11/20/18 09:27 Respiratory Rate 16 11/20/18 09:27 Blood Pressure 126/77 11/20/18 09:27 O2 Sat by Pulse Oximetry (%) 98 11/19/18 21:00 Constitutional: Yes: Well Nourished, No Distress, Calm Eyes: Yes: Conjunctiva Clear, EOM Intact. No: Sclera Icterus HENT: Yes: Atraumatic, Normocephalic Gastrointestinal: Yes: Soft, Distention (mild). No: Tenderness, Tenderness, Epigastrium (except mild incisional only) Extremities: No: Cool, Cyanosis Integumentary: Yes: Incision (x4 w/steris). No: Jaundice, Rash Wound/Incision: Yes: Steri Strips (x4 intact, dry) Neurological: Yes: Alert, Oriented Labs: CBC, BMP 11/20/18 07:50 11/20/18 07:50 CMP Sodium 137 mmol/L (136-145) 11/20/18 07:50 Potassium 3.8 mmol/L (3.5-5.1) 11/20/18 07:50 Chloride 104 mmol/L (98-107) 11/20/18 07:50 Carbon Dioxide 26 mmol/L (21-32) 11/20/18 07:50 Anion Gap 7 MMOL/L (8-16) L 11/20/18 07:50 BUN 12.4 mg/dL (7-18) 11/20/18 07:50 Creatinine 0.7 mg/dL (0.55-1.3) 11/20/18 07:50 Est GFR (CKD-EPI)AfAm 135.70 11/20/18 07:50 Est GFR (CKD-EPI)NonAf 117.08 11/20/18 07:50 Random Glucose 100 mg/dL (74-106) 11/20/18 07:50 Calcium 9.3 mg/dL (8.5-10.1) 11/20/18 07:50 Phosphorus 3.8 mg/dL (2.5-4.9) 11/19/18 06:30 Magnesium 2.0 mg/dL (1.8-2.4) 11/19/18 06:30 Iron 11 ug/dL (50-175) L 11/13/18 17:25 TIBC 463 ug/dL (250-450) H 11/13/18 17:25 Iron Saturation 2 % (17.5-39) L 11/13/18 17:25 Unsaturated IBC 452 ug/dL (200-275) H 11/13/18 17:25 Transferrin 375 mg/dL (200-370) H 11/14/18 01:03 Ferritin 10.0 ng/ml (8-388) 11/15/18 06:46 Total Bilirubin 2.1 mg/dL (0.2-1) H 11/20/18 07:50 AST 182 U/L (15-37) H 11/20/18 07:50 ALT 304 U/L (13-61) H 11/20/18 07:50 Alkaline Phosphatase 233 U/L (45-117) H 11/20/18 07:50 Troponin I < 0.02 ng/ml (0.00-0.05) 11/14/18 01:30 Total Protein 7.5 g/dl (6.4-8.2) 11/20/18 07:50 Albumin 3.5 g/dl (3.4-5.0) 11/20/18 07:50 Total Amylase > 1300 U/L (25-115) H 11/15/18 06:46 Lipase 1024 U/L (73-393) H 11/20/18 07:50 Vitamin B12 694 pg/ml (193-986) 11/15/18 06:46 Serum Folate 19 ng/mL (3.1-17.5) H 11/13/18 17:25 Beta HCG, Quant < 1.0 mIU/ml 11/13/18 17:25 Serum , Qual Negative 11/13/18 19:37 Problem List - Problems (1) Bile duct stricture Assessment/Plan: POD6 s/p ERCP by GI with sphincterotomy, evacuation of copious purulent bile no common duct stones identified post-ERCP pancreatitis resolved POD4 s/p laparoscopic cholecystectomy with findings of hydrops and chronic cholecystitis continue IV antibiotics per ID - will need PO antibiotics on discharge home per Dr. Mcdonald POD2 s/p repeat ERCP with stenting, widening of sphincterotomy - cbd stone could not be extracted no bile duct injury or leak identified pt currently with no pain or tenderness ibuprofen PRN - not using tolerating diet on bacid daily - encourage probiotic +/- yogurt daily at home while finishing abx OOB/ambulating no fevers, normal wbc incisions c/d/i with steris bili coming back down LFTs sideways Dr. Jeong/GI following - will see her Dec 02 for labs, and in 1-2 months for stent removal and to ensure bile duct clear of stone ok per ID to change to PO antibiotics, 8 days Augmentin d/c home with followup instructions in d/c plan f/u with surgery Dec 02 as noted discussed with Dr. Jeong, Dr. Mcdonald, Dr. Conn referred to primary care clinic for anemia may f/u with CLEANER as well Code(s): K83.1 - OBSTRUCTION OF BILE DUCT (2) Bile duct calculus with obstruction Assessment/Plan: see above Code(s): K80.51 - CALCULUS OF BILE DUCT W/O CHOLANGITIS OR CHOLECYST W OBST Qualifiers: Cholecystitis presence: without cholecystitis Qualified Code(s): K80.51 - Calculus of bile duct without cholangitis or cholecystitis with obstruction (3) Acute obstructive cholangitis Assessment/Plan: see above Code(s): K83.09 - OTHER CHOLANGITIS (4) Calculus of gallbladder without cholecystitis with obstruction Assessment/Plan: see above Code(s): K80.21 - CALCULUS OF GALLBLADDER W/O CHOLECYSTITIS WITH OBSTRUCTION (5) Anemia Assessment/Plan: anemia most likely chronic - reports history of same 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 Clifton as outpatient Code(s): D64.9 - ANEMIA, UNSPECIFIED Qualifiers: Anemia type: iron deficiency Iron deficiency anemia type: unspecified iron deficiency Qualified Code(s): D50.9 - Iron deficiency anemia, unspecified
--- NOTE | 2018-11-20 13:14 | DS ---
Physical Exam: SUBJECTIVE: No complaints. Ready to go home. OBJECTIVE: Vital Signs Period Temp Pulse Resp BP Sys/Raya Pulse Ox Last 24 Hr 97.7 F-99 F 55-70 16-18 112-132/65-77 98 PHYSICAL EXAM PE: GEN: NAD, awake, alert, orientedx3 HEENT: NC/AT, JASE, MMM Neck: No JVD Lungs: CTA b/l without any wheezes or rales noted. On RA 99% CARD: RRR no murmurs appreciated ABD: Soft, nondistended, nontender, normoactive BS, incisions noted with steristrips EXT: No edema, well-perfused, no calf tenderness Skin: No jaundice today LABS Laboratory Results - last 24 hr 11/16/18 11/20/18 11/20/18 06:45 07:50 07:50 WBC 6.6 RBC 5.27 H Hgb 10.0 L Hct 32.7 MCV 62.1 L MCH 19.1 L MCHC 30.7 L RDW 31.4 H Plt Count 317 MPV 8.8 Sodium 137 Potassium 3.8 Chloride 104 Carbon Dioxide 26 Anion Gap 7 L BUN 12.4 Creatinine 0.7 Est GFR (CKD-EPI)AfAm 135.70 Est GFR (CKD-EPI)NonAf 117.08 Random Glucose 100 Calcium 9.3 Total Bilirubin 2.1 H AST 182 H ALT 304 H Alkaline Phosphatase 233 H Total Protein 7.5 Albumin 3.5 Lipase Blood Type B POSITIVE Antibody Screen Negative Crossmatch IS Only See Detail 11/20/18 07:50 WBC RBC Hgb Hct MCV MCH MCHC RDW Plt Count MPV Sodium Potassium Chloride Carbon Dioxide Anion Gap BUN Creatinine Est GFR (CKD-EPI)AfAm Est GFR (CKD-EPI)NonAf Random Glucose Calcium Total Bilirubin AST ALT Alkaline Phosphatase Total Protein Albumin Lipase 1024 H Blood Type Antibody Screen Crossmatch IS Only Microbiology 11/13/18 23:10 Urine - Urine Clean Catch Urine Culture - Final Staphylococcus Aureus IMAGING: ABD U/S: Impression: Cholelithiasis is noted with possible acute cholecystitis as noted above. The common bile duct appears mildly dilated with a 0.8 cm diameter Transvaginal U/S: IMPRESSION: No intrauterine device is identified. Normal thickness of the endometrial stripe. A few nabothian cysts in the cervix with the largest measuring 11 x 6 mm. Both ovaries appear unremarkable with normal vascular flow. Nonspecific small amount of free fluid in the cul-de-sac HOSPITAL COURSE: Date of Admission:11/13/18 Date of Discharge: 11/20/18 Discharge Summary Problems reviewed: Yes Reason For Visit: COMMON BILE DUCT CALCULUS, ANEMIA, ABD PAIN Current Active Problems Abdominal pain (Acute) Acute obstructive cholangitis (Acute) Anemia (Acute) Bile duct calculus with obstruction (Acute) Bile duct stricture (Acute) Calculus of gallbladder without cholecystitis with obstruction (Acute) Cholecystitis (Acute) Cholelithiasis (Acute) RUQ pain (Acute) Condition: Improved - Instructions Diet, Activity, Other Instructions: Postoperative instructions: You had a laparoscopic cholecystectomy on 11/16/[address] Hero Escudero of [facility]. Before that, you had an ERCP by Dr. Teofilo Jeong (Gastroenterology), during which your bile duct opening was widened from the inside, allowing infected bile to drain freely into the intestine. You were treated with antibiotics for the bile duct infection, which you will need to finish taking at home. After your surgery, you needed a second ERCP, because there was a gallstone in the bile duct that could not be gotten out. A stent (long, thin tube) was placed in the bile duct, to make sure the bile could flow freely past the stone. Your pain and tenderness have gotten much better since then. You WILL need to see Dr. Jeong again, because he will need to REMOVE the stent with another ERCP procedure and make sure the stone is out of the bile duct. The stent should come out no more than 3 months from now. Activity: Resume your usual activities gradually, but no heavy exertion or lifting more than 10-15 pounds for 1 month. Sticky tapes on your incisions will fall off by themselves. You may shower daily, just pat the incision areas dry. No bath or swimming until skin incisions have fully healed. Eat lightly at first , but advance to your usual diet as tolerated. Medications: For pain, you may use ibuprofen 200 mg (1-2 pills) every 4-6 hours as needed. Take medications as prescribed or indicated on the labeling. Decrease how many pills and how often you take them as your pain gets better. You are being prescribed 8 more days of Augmentin, an antibiotic, to take TWICE a day. Make sure to take ALL of your antibiotics, even though you may feel better. Also take a PROBIOTIC pill and/or eat yogurt every day while you are taking the antibiotics, and for a week or so after you are done. Follow-up: Call Dr. Escudero's office at [phone] to confirm your postop appointment (FridayDecember 02 at 10:30 am). Clinic is held in the Diagnostic Center on the first floor of [facility]. Call Dr. Escudero's office if you have: * increasing pain not responsive to pain medication * fever of 101F or higher * vomiting * unusual or increasing bleeding or drainage from wounds * increasing redness or swelling at wound sites Dr. Jeong will see you again at the [facility] Gastroenterology Clinic on December 02 at 1:00 pm. Call [phone] to confirm your appointment. The GI Clinic is at [address] [place] [address] in [place], at [facility], next to the [employer] on the main level. He will need to check your labs by getting more blood work. There may be a fee for this appointment. They have a [facility] program - you will need to call about it at , ask to speak to Vitaliy. Also, call to make an appointment within 1-2 weeks, to establish PRIMARY CARE with a medical doctor. You have ANEMIA, which are low blood counts, and should be followed by a primary care physician. You may also follow up with Dr. Joseph Clifton, DUMP WORKER, who saw you in the hospital. You are being referred to the medical clinics at [address] [place] [address] OR at [address] [place] [address] in [place]. One of these clinics should be able to see you, even if you do not have insurance, though you may have to pay something. Referrals: [facility] [Provider Group] - 1 Week (CALL for appointment to establish primary care here OR with Dr. Brown's clinic) Nithin Brown MD [Staff Physician] - 1 Week (CALL for appointment to establish primary care here OR at [address] [place] [address]) Hero Escudero MD [Staff Physician] - 12/02/18 10:30 am (Call to confirm your appointment time for 10:30am FriDec 02 - clinic is held on FIRST FLOOR of [facility] in the Diagnostic Center. After your appointment, you will go straight to [facility] to see Dr. Jeong the same day.) Joseph Clifton MD [Staff Physician] - Teofilo Jeong MD [Staff Physician] - 12/02/18 1:00 pm (You will Dr. Jeong at [facility] Gastroenterology Clinic (Endoscopy Unit) on December 02 at 1pm. Call [phone] to confirm your appointment. Call [phone] and ask for Vitaliy to discuss applying for their [facility] Program.) Disposition: HOME - Home Medications Comprehensive Discharge Medication List: Ambulatory Orders Amox-Tr/K Cl [Augmentin - 875Mg Tablet] 1 tab PO BID #16 tablet 11/20/18 Ibuprofen [Motrin -] 400 mg PO Q6H PRN tablet 11/20/18 Lactobacillus Acidophilus [Bacid -] 1 tab PO DAILY tab 11/20/18 - Discharge Referral Referred to [facility] No ATTENDING PHYSICIAN STATEMENT I saw and evaluated the patient. I reviewed the resident's note and discussed the case with the resident. I agree with the resident's findings and plan as documented. SUBJECTIVE: OBJECTIVE: ASSESSMENT AND PLAN:
--- NOTE | 2018-12-03 12:17 | OP ---
DATE OF OPERATION: 11/16/2018 PREOPERATIVE DIAGNOSIS: Cholelithiasis and cholangitis secondary to common bile duct stricture status post endoscopic retrograde cannulation of pancreatic duct. POSTOPERATIVE DIAGNOSIS: Cholelithiasis and cholangitis secondary to common bile duct stricture status post endoscopic retrograde cannulation of pancreatic duct, chronic cholecystitis. OPERATION: Laparoscopic cholecystectomy. SURGEON: Hero Escudero MD PERCUSSION WELDING MACHINE OPERATOR: PHIL Schroeder and PHIL Roberts ANESTHESIA: General endotracheal and local 20 mL of 0.5% Marcaine. ESTIMATED BLOOD LOSS: 100 mL. FLUIDS: 2 L of crystalloid. SPECIMEN: Gallbladder to Pathology. FINDINGS: Dense overlying adhesions. Thickened gallbladder wall. Tense gallbladder decompressed to 40 mL of hydrops initially. Multiple stones present. Very small spillage of bile with tiny stones, which was suctioned. Cystic artery identified leading onto the gallbladder wall clipped early. Enlarged cystic duct clearly identified leading directly into the gallbladder and clipped with 10-mm Weck clips. DISPOSITION: Stable and extubated to PACU. INDICATIONS FOR THE PROCEDURE: Patient is a 28-year-old female with a history of anemia and 4 sections who began having right upper quadrant epigastric pain 2 days prior to presentation. She denied nausea, vomiting, fever, chills, diarrhea, or constipation but eventually came to the emergency room where she had a white count of 12, normal liver functions and lipase, but was anemic to a hemoglobin of 7.2. She had blood transfusions and an ultrasound of the right upper quadrant showing few stones with inspissated bile and sludge in the gallbladder and a dilated common bile duct. She was admitted to medicine, given IV fluids and pain medications, and seen by GI the next day. Her white count and liver functions both byron precipitously, and instead of MRCP, which had been planned, she was instead taken for urge ERCP by GI with findings of ampullary stenosis and a possible stricture of the distal common bile duct. On cannulation, they had return of copious purulent bile indicating cholangitis. No common bile duct stones were identified, and IV antibiotics were also started at that time. She was subsequently seen by surgery. Physical exam was consistent with no residual tenderness either in the right upper quadrant or the epigastrium following her procedure, and she was monitored for another 24 hours for evaluation of post ERCP pancreatitis, which did occur but had improved by the following morning. Risks, benefits, and alternatives of laparoscopic, possible open, cholecystectomy were then discussed with the patient using Bulgarian phone motor equipment lieutenant number [id number] inclusive of, but not limited to, bleeding, infection, injury to adjacent structures, bile leak or ductal injury, intra-abdominal abscess, incisional hernia, and need for further procedures. Alternatives included antibiotics, delayed or no surgery with risks including choledocholithiasis, cholecystitis, cholangitis, pancreatitis, sepsis, and their sequelae. The patient agreed to proceed with an operation, signed informed consent for the same, and is now brought to the OR for this procedure. OPERATIVE TECHNIQUE: The patient was brought to the operating room and laid supine on the operating table. Sequential compression devices were used on bilateral lower extremities, and antibiotics were continued in the perioperative period. After induction and intubation by anesthesia, the patient's abdomen was prepped and draped in sterile fashion. A small supraumbilical midline incision was made with a scalpel and carried into subcutaneous tissues with electrocautery until the abdominal wall fascia was identified, scored, and elevated with Veronica clamps. The peritoneum was entered bluntly with the tip of a clamp and a fingertip inserted to ensure entry into the abdominal cavity and the absence of any underlying adhesions. A stay suture of 0 Vicryl was placed in [id number] fashion in the fascia for later closure and the Eduardo trocar introduced directly into the abdominal cavity and secured in place with the balloon. The abdomen was insufflated with carbon dioxide. The laparoscope was inserted to inspect the abdominal cavity, and the patient was placed in reverse Trendelenburg position with the right side plane somewhat upward. Additional 5-mm ports were placed under direct vision 1st in the subxiphoid area through which a grasper was introduced and used to sweep the omentum down off of the gallbladder at the edge of the liver. The gallbladder was noted to be rather tense as well as having a fairly thickened wall through which initially a decompression needle was introduced through 1 of them and used to decompress the gallbladder of approximately 40 mL of thick, mucoid hydrops. After this, the 1st grasper was able to be used to grasp the fundus of the gallbladder and elevate it over the liver edge. The 2nd grasper was used to assist myself in the operative port with a [place] dissector in terms of grasping the gallbladder so that I could peel down the omental adhesions over the gallbladder wall until the gallbladder could be grasped closer to the infundibulum with the grasper from the right side. The adhesions toward the base of the gallbladder were fairly dense, and some of these were able to be peeled off of the anterior surface. It was initially difficult to tell whether the structure coming into view that appeared to be enlarged may be the cystic duct or still the bottom of the gallbladder itself. Dissection was continued with a [place] dissector and also in areas with the hook cautery moving up the medial and lateral starr of the gallbladder with the hook cautery to more clearly identify both the base of the gallbladder itself and ultimately the cystic duct or artery. Eventually, cystic artery was noted leading directly onto the anterior gallbladder wall toward the medial aspect. This was clipped, 2 proximally and 1 distally, with the 5-mm clipper and divided between them. The lymph node of Calot was also identified toward the medial aspect of the base of the gallbladder, and dissection continued both from the anterior and lateral posterior aspect of the base of the gallbladder with the [place] dissector until the base of the gallbladder could be much more clearly delineated thus eventually leading to identification of the enlarged cystic duct. The lateral surface was initially more clear. The medial aspect of the cystic duct itself was eventually also clear where it joined the gallbladder itself and a window created at that location with the [place] dissector to get around behind the cystic duct so it could be isolated and clipped. At this point, it became clear that the cystic duct itself was too enlarged to clip with the 5-mm clip or even the 5-mm Weck plastic locking clips, thus, the subxiphoid port was upsized to an 11-mm port and the 10-mm Weck clipper used to very carefully clip 2 proximally and 1 distally at the cystic duct with 10-mm Weck clips. At this point, the Endo Joan were used to divide between these clips and the hook cautery used to continue taking the gallbladder itself off of the liver bed. The suction roller skate repairer was also used throughout the early part of the case for occasional suctioning of bloody fluid from around the area as the adhesed tissues did have a tendency to ooze. At one point during dissection the gallbladder off the liver bed, there was a tiny hole made with some small spillage of the clear bile with a few very tiny stone bits, which was suctioned. Once the gallbladder was entirely off of the liver bed itself, it was placed in an EndoCatch bag and retrieved out the umbilical port site and passed off the table for a pathologic specimen. There were some stones palpable within the gallbladder itself. Once the Eduardo trocar and pneumoperitoneum had been re-established and the camera returned from the subxiphoid port to the Perez port, the operative field was inspected for hemostasis. The field was irrigated with saline and suctioned clear of all fluid, blood, and spilled bile, and there was no active bleeding noted. The 5-mm ports were then removed under direct vision, the 10-mm port from the subxiphoid area also under direct vision, and a Eduardo trocar and camera also finally removed as well. The abdomen was exsufflated of carbon dioxide. Hemostasis was achieved in the port sites with electrocautery where necessary and the stay suture at the umbilicus tied to close the fascia there. The fascia at the subxiphoid port site was not closed but local anesthetic infiltrated into all 4 port sites and skin reapproximated with 4-0 Vicryl subcuticular sutures including a running at the umbilicus and a running at the subxiphoid site. Benzoin and Steri-Strips were then applied over each incision and dressings of gauze and Tegaderm placed over these. Counts were correct at the end of the procedure. The patient was then awakened and extubated by anesthesia, moved back to her stretcher, and taken to the recovery room in stable condition having tolerated the procedure well. Mali Foreman was an essential household personal assistant throughout the procedure from facilitating entry into the abdominal cavity to grasping and manipulation of the gallbladder throughout the case at one point in conjunction with Rene Weeks, who scrubbed in toward the middle portion of the case to assist during the identification and dissection of the cystic duct after which he scrubbed out and [place] completed the case with me, to helping with retrieval of the gallbladder, local infiltration, and closure of the port sites. Hero Escudero M.D. [id number]
== END 2018-11-20 14:14 | disposition home or self-care (01) | DRG 263 ==
LOC: JER 16:40 → JERBED 22:45 → J7W 11-14 01:42
PROVIDERS: ADMIT Internal Medicine; ATTEND Internal Medicine
PROC: 0F798ZZ Dilation of Common Bile Duct, Via Natural or Artificial Opening Endoscopic (ICD-10-PCS; 2018-11-14)
PROC: 0FT44ZZ Resection of Gallbladder, Percutaneous Endoscopic Approach (ICD-10-PCS; principal; 2018-11-16 10:00)
PROC: 0F798DZ Dilation of Common Bile Duct with Intraluminal Device, Via Natural or Artificial Opening Endoscopic (ICD-10-PCS; 2018-11-18)
DX: K80.33 Calculus of bile duct with acute cholangitis with obstruction (principal); K91.89 Other postprocedural complications and disorders of digestive system; K85.90 Acute pancreatitis without necrosis or infection, unspecified; E83.42 Hypomagnesemia; E87.6 Hypokalemia; E83.39 Other disorders of phosphorus metabolism; R82.71 Bacteriuria; D50.9 Iron deficiency anemia, unspecified; E66.9 Obesity, unspecified; Z68.31 Body mass index [BMI] 31.0-31.9, adult; D72.829 Elevated white blood cell count, unspecified; E80.6 Other disorders of bilirubin metabolism
CPT/HCPCS: 36415; 36430; 36511; 71045-TC-FY; 74330-TC; 76705-TC; 76830-TC; 76856-TC; 80053; 81003; 82150; 82248; 82272; 82607; 82728; 82746; 83540; 83550; 83690; 83735; 84100; 84466; 84484; 84702; 84703; 85025; 85027; 85610; 85730; 86850; 86900; 86901; 86922; 87086; 87186; 87491; 87591; 88304-TC; 93005; 93010; 94010; 94760; 97116-GP; 97161-GP; 99285-25; J0131; J7030; P9038; P9058

== ENCOUNTER 2020-01-06 07:25 | Inpatient (IN) | payer OTHER ==
[2020-01-06] MEDS ORDERED: ELECTROLYTE-148 SOLN 500 ML IV SCH (08:05)
[2020-01-06] MEDS ORDERED: ELECTROLYTE-148 SOLN 1,000 ML IV SCH ×3 (08:35→12:15)
[2020-01-06 09:09] LABS: BASO % 0.8 % (0-2.0); EOS % 2.4 % (0-4.5); HEMATOCRIT 34.5 % (32.4-45.2); HEMOGLOBIN 10.9 GM/dL (10.7-15.3); LYMPH % 22.8 % (8-40); MCH 24.3 pg (25.7-33.7); MCHC 31.6 g/dl (32.0-36.0); MEAN CELL VOLUME 76.8 fl (80-96); MEAN PLT VOLUME 10.3 fl (7.5-11.1); MONO % 6.6 % (3.8-10.2); NEUT % 67.4 % (42.8-82.8); PLATELET COUNT 160 K/MM3 (134-434); RBC 4.49 M/mm3 (3.60-5.2); RDW 19.3 % (11.6-15.6); WHITE BLOOD COUNT 6.7 K/mm3 (4.0-10.0)
[2020-01-06 09:19] LABS: INR 0.89 (0.83-1.09); PROTHROMBIN TIME (PATIENT) 10.8 SEC (9.7-13.0)
[2020-01-06 09:22] LABS: ACTIVATED PTT 28.1 SECONDS (25.2-36.5)
[2020-01-06 09:26] LABS: POTASSIUM 3.8 mmol/L (3.5-5.1)
[2020-01-06 09:27] LABS: CALCIUM 8.6 mg/dL (8.5-10.1)
[2020-01-06 09:28] LABS: BLOOD UREA NITROGEN 11.7 mg/dL (7-18)
[2020-01-06 09:31] LABS: CREATININE 0.6 mg/dL (0.55-1.3)
[2020-01-06] MEDS ORDERED: CITRIC ACID/SODIUM CITRATE 30 ML UNIT-DOSE CUP PO ONE (12:01)
[2020-01-06 12:16] VITALS: BMI 35.7
[2020-01-06] MEDS ORDERED: OXYTOCIN 20 UNITS in 0.9% NS 20 UNIT/1,000 ML INFUS.BAG IV ONE (12:25)
[2020-01-06] MEDS ORDERED: LIGASURE IMPACT TP ONE (13:20)
[2020-01-06] MEDS ORDERED: ONDANSETRON 4 MG/2 ML VIAL IVPUSH PRN (17:10)
[2020-01-06] MEDS ORDERED: PHENYLEPHRINE HCL 10 MG/1 ML SINGLE DOSE VIAL ONE (17:21)
[2020-01-06] MEDS ORDERED: morphine SULFATE/PF 0.5 MG/ML (2cc Syringe - QUVA) ONE (17:21)
[2020-01-06] MEDS ORDERED: ceFAZolin SODIUM 1 GM VIAL ONE (17:38)
[2020-01-06] MEDS ORDERED: OXYTOCIN 10 UNITS/ML VIAL ONE (18:00)
[2020-01-06] MEDS ORDERED: IBUPROFEN 800 MG/8 ML IJ IVPB PRN (18:39)
[2020-01-06] MEDS ORDERED: oxyCODONE HCL 5 MG TABLET PO PRN (18:39)
[2020-01-07 08:06] LABS: BASO % 0.5 % (0-2.0); EOS % 1.3 % (0-4.5); HEMATOCRIT 30.3 % (32.4-45.2); HEMOGLOBIN 9.7 GM/dL (10.7-15.3); LYMPH % 11.4 % (8-40); MCH 24.9 pg (25.7-33.7); MCHC 31.9 g/dl (32.0-36.0); MONO % 5.5 % (3.8-10.2); NEUT % 81.3 % (42.8-82.8); PLATELET COUNT 132 K/MM3 (134-434); RBC 3.89 M/mm3 (3.60-5.2); RDW 19.5 % (11.6-15.6); WHITE BLOOD COUNT 8.2 K/mm3 (4.0-10.0)
[2020-01-07] MEDS: OXYTOCIN 20 UNITS in 0.9% NS 20 UNIT/1,000 ML INFUS.BAG IV SCH (10:20)
[2020-01-07] MEDS ORDERED: BISACODYL 10 MG SUPP.RECT RC PRN (18:39)
[2020-01-07] MEDS: SIMETHICONE 80 MG TAB.CHEW (FP) PO PRN (20:31)
[2020-01-07] MEDS: IBUPROFEN 600 MG TABLET (FP) PO PRN (20:32)
[2020-01-08] MEDS: OXYTOCIN 20 UNITS in 0.9% NS 20 UNIT/1,000 ML INFUS.BAG IV SCH (19:17)
[2020-01-09] MEDS: IBUPROFEN 600 MG TABLET (FP) PO PRN (06:20)
[2020-01-09] MEDS: SIMETHICONE 80 MG TAB.CHEW (FP) PO PRN (06:21)
[2020-01-09 09:06] VITALS: BP 130/77; PULSE 82; TEMP 98.4
[2020-01-09 09:10] LABS: BASO % 0.3 % (0-2.0); EOS % 5.4 % (0-4.5); HEMATOCRIT 29.4 % (32.4-45.2); HEMOGLOBIN 9.4 GM/dL (10.7-15.3); LYMPH % 14.9 % (8-40); MCH 24.8 pg (25.7-33.7); MEAN CELL VOLUME 77.8 fl (80-96); MEAN PLT VOLUME 9.1 fl (7.5-11.1); MONO % 4.8 % (3.8-10.2); NEUT % 74.6 % (42.8-82.8); PLATELET COUNT 165 K/MM3 (134-434); RBC 3.77 M/mm3 (3.60-5.2); RDW 19.8 % (11.6-15.6); WHITE BLOOD COUNT 7.7 K/mm3 (4.0-10.0)
[2020-01-17 16:07] LABS: POC NITRAZINE NEG
== END 2020-01-09 11:30 | disposition home or self-care (01) | DRG 540 ==
LOC: JDEL 07:25 → JLDR 11:38 → J3W 19:55
PROVIDERS: ADMIT Student in an Organized Health Care Education/Training Program; ATTEND Student in an Organized Health Care Education/Training Program
PROC: 10D00Z1 Extraction of Products of Conception, Low, Open Approach (ICD-10-PCS; principal; 2020-01-06)
PROC: 0UT70ZZ Resection of Bilateral Fallopian Tubes, Open Approach (ICD-10-PCS; 2020-01-06)
DX: O34.219 Maternal care for unspecified type scar from previous cesarean delivery (principal); O99.03 Anemia complicating the puerperium; D64.9 Anemia, unspecified; Z30.2 Encounter for sterilization; Z90.49 Acquired absence of other specified parts of digestive tract; Z3A.38 38 weeks gestation of pregnancy; Z37.0 Single live birth
CPT/HCPCS: 36415; 71046-TC-FY; 80048; 83986-QW; 85025; 85610; 85730; 86780; 86850; 86900; 86901; 88302-TC; 88307-TC; C9803; U0003

== ENCOUNTER 2023-11-10 13:51 | Emergency (ER) | payer OTHER ==
[2023-11-10 14:02] VITALS: BP 123/84; PULSE 107; RESP 18; TEMP 98.4; BMI 31.1
[2023-11-10 15:12] LABS: BASO % 0.2 % (0-2.0); EOS % 0.9 % (0-4.5); HEMATOCRIT 36.7 % (32.4-45.2); HEMOGLOBIN 11.7 GM/dL (10.7-15.3); LYMPH % 11.9 % (8-40); MCH 23.6 pg (25.7-33.7); MEAN CELL VOLUME 73.6 fl (80-96); MEAN PLT VOLUME 8.7 fl (7.5-11.1); MONO % 4.9 % (3.8-10.2); NEUT % 82.1 % (42.8-82.8); PLATELET COUNT 252 10^3/uL (134-434); RBC 4.98 M/mm3 (3.60-5.2); RDW 17.2 % (11.6-15.6); WHITE BLOOD COUNT 11.5 K/mm3 (4.0-10.0)
[2023-11-10 15:14] LABS: EPI CELLS 3 /uL (0-25.1); HYALINE CASTS 0 /uL (0-3.1); URINE APPEARANCE CLOUDY; URINE BACTERIA 7291 /uL (0-1359); URINE BILIRUBIN NEGATIVE (NEGATIVE); URINE COLOR YELLOW; URINE GLUCOSE (UA) NEGATIVE (NEGATIVE); URINE KETONE NEGATIVE (NEGATIVE); URINE LEUK ESTERASE 3+ (NEGATIVE); URINE NITRITE POSITIVE (NEGATIVE); URINE PROTEIN 2+ (NEGATIVE); URINE RBC 226 /uL (0-23.9); URINE UROBILINOGEN 0.2 mg/dL (0.2-1.0); URINE WBC 1811 /uL (0-25.8)
[2023-11-10 15:36] LABS: POTASSIUM 3.6 mmol/L (3.5-5.1)
[2023-11-10 15:38] LABS: ALBUMIN 4.1 g/dl (3.4-5.0); CALCIUM 9.4 mg/dL (8.5-10.1)
[2023-11-10 15:39] LABS: BLOOD UREA NITROGEN 15.7 mg/dL (7-18)
[2023-11-10 15:42] LABS: CREATININE 0.7 mg/dL (0.55-1.3)
[2023-11-10 15:43] LABS: BILIRUBIN,TOTAL 0.7 mg/dL (0.2-1); TOT PROT 8.1 g/dl (6.4-8.2)
[2023-11-12 14:04] LABS: HCG,QUALITATIVE URINE Negative
== END 2023-11-10 16:52 | disposition home or self-care (01) ==
LOC: JER 13:51
DX: M54.9 Dorsalgia, unspecified (principal); N30.01 Acute cystitis with hematuria
CPT/HCPCS: 36415; 80053; 81003; 84703; 85025; 87086; 87186; 99283-25